=== PATIENT | male | born 1945 | race Caucasian/White ===

== ENCOUNTER → 2018-04-24 08:27 | Outpatient (CLI) | payer MEDICARE, OTHER, SELFPAY ==
--- NOTE | 2018-04-24 08:28 | DI.RAD.S_ITS ---
PROCEDURE: XR SHOULDER RT MIN 2V INDICATIONS: right shoulder pain TECHNIQUE: 3 views of the shoulder were acquired. COMPARISON: None. FINDINGS: Bones: No fractures or dislocations. No suspicious bony lesions. Visualized ribs appear intact. There is moderately severe to severe a.c. joint osteoarthritis and moderate glenohumeral joint osteoarthritis. Tendon transfer omega appear present over the humeral head. Soft tissues: No suspicious soft tissue calcifications. IMPRESSION: No acute trauma seen. Quite severe a.c. joint osteoarthritis is present. Moderate glenohumeral joint osteoarthritic change also is present. Prior tendon transfer omega as noted. Dictated by: Andrade Jacobs M.D. on 04/24/2018 at 11:34 Approved by: Andrade Jacobs M.D. on 04/24/2018 at 11:35
== END ==
PROVIDERS: PCP Family Medicine; Visit Provider Family Medicine
DX: M25.511 Pain in right shoulder (principal); G89.29 Other chronic pain; M19.011 Primary osteoarthritis, right shoulder
CPT/HCPCS: 73030

== ENCOUNTER → 2018-05-08 18:30 | Outpatient (CLI) | payer MEDICARE, OTHER, SELFPAY ==
--- NOTE | 2018-05-08 18:33 | DI.MRI.S_ITS ---
PROCEDURE: MR SHOULDER RT WO CON INDICATIONS: Eval and treat Right shoulder pain TECHNIQUE: Noncontrast oblique coronal T2 fast spin echo with fat saturation, oblique sagittal T1 spin echo and T2 fast spin echo with fat saturation, axial T1 spin echo and T2 fast spin echo with fat saturation through the shoulder. COMPARISON: [facility], CR, XR SHOULDER RT MIN 2V, 04/24/2018, 8:08. FINDINGS: Image quality: Suboptimal due to susceptibility artifact related to postsurgical changes and soft tissue anchors in the right humeral head. Metallic artifact reduction pulse sequences were utilized. Rotator cuff: Supraspinatus tendon is obscured by hardware artifact. The proximal musculotendinous junction and muscle belly. Intact. The infraspinatus tendon demonstrates mild tendinopathy although the distal tendon is also partially obscured. The teres minor tendon appears intact. Subscapularis tendon is obscured distally. The muscular tendinous junction and muscle belly appears intact. No evidence of muscle atrophy. Minimal fatty infiltration of the supraspinatus muscle belly. Bones and bursae: No bone marrow contusions or fractures. Moderate acromioclavicular joint degeneration. The acromion demonstrates conventional anatomy, without an os acromiale. Moderate subacromial-subdeltoid bursal fluid is present. Capsule and soft tissues: No definite intrasubstance fluid signal intensity seen within the labrum although there is a blunted appearance of the posterior segment, with signal abnormality on image 19 series 3 suggestive of likely chronic tear. There is also prominent posterior subluxation of the humeral head relative to the glenoid suggestive of microinstability. There is circumferential quadrant spurring without definite segmental preponderance. The long head of the biceps tendon is obscured by hardware artifact. The rotator interval appears normal, without fibrosis. The coracohumeral ligament is normal in thickness. IMPRESSION: Posterior labral tear, with associated posterior subluxation of the humeral head relative to the glenoid suggestive of microinstability. This finding is probably chronic in age. Please correlate clinically. Rotator cuff is largely obscured by hardware artifact despite metallic artifact reduction pulse sequences. Mild fatty infiltration of the supraspinatus muscle. Moderate subacromial/subdeltoid bursitis. Dictated by: Hipolito Koroma M.D. on 05/11/2018 at 8:25 Approved by: Hipolito Koroma M.D. on 05/11/2018 at 8:37
== END ==
PROVIDERS: PCP Family Medicine; Visit Provider Family Medicine
DX: M25.511 Pain in right shoulder (principal); M75.51 Bursitis of right shoulder; S43.401A Unspecified sprain of right shoulder joint, initial encounter
CPT/HCPCS: 73221

== ENCOUNTER → 2018-07-03 17:03 | Outpatient (CLI) | payer MEDICARE, OTHER, SELFPAY ==
--- NOTE | 2018-07-03 17:06 | DI.MRI.S_ITS ---
PROCEDURE: MR LUMBAR SPINE WO CON INDICATIONS: LOW BACK PAIN AND BILATERAL LEG PAIN TECHNIQUE: Noncontrast sagittal T1 spin echo and T2 fast echo, sagittal STIR, axial T1 and T2 fast spin echo through the lumbar spine. In cases with scoliosis, additional coronal T2 fast spin echo may be performed. COMPARISON: [facility], CR, CHEST 2 VIEW, 07/31/2015, 10:36. [facility], CT, ABDOMEN W&WO CONTRAST, 11/18/2016, 11:14. FINDINGS: Image quality: Excellent. Alignment and Curvature: There is grade 1 anterolisthesis of L2 upon L3, and minimal retrolisthesis of L1 on L2 and L4 on L5. Bone Marrow: Degenerative vertebral endplate signal changes are present, most pronounced at L4 and L5. No acute vertebral body compression fractures. Spinal Cord: Conus medullaris terminates at the T12-L1 level. Visualized cord demonstrates normal signal and size. Paraspinous Soft Tissues: No paravertebral masses. There is a right renal cyst, which is partially visualized. T12-L1: Mild loss of disc height. Severe disc desiccation. There is diffuse posterior disc bulge and disc osteophyte complex. Moderate bilateral facet arthropathy and hypertrophy of ligamentum flavum. The central canal is mildly narrowed. Moderate right and mild left foraminal stenosis. L1-L2: Moderate loss of disc height. Severe disc desiccation. There is diffuse posterior disc bulge and disc osteophyte complex. Moderate bilateral facet arthropathy and hypertrophy of ligamentum flavum. The central canal is rapl-ql-hituijanod narrowed. Severe bilateral foraminal stenosis. L2-L3: Moderate loss of disc height. Severe disc desiccation. There is diffuse posterior disc bulge and disc osteophyte complex. Severe bilateral facet arthropathy with severe facet joint hypertrophy. The central canal is severely narrowed. Severe bilateral foraminal stenosis. L3-L4: The laminectomies. Mild loss of disc height and disc desiccation. There is diffuse posterior disc bulge and small annular fissure posterior centrally. Moderate bilateral facet arthropathy. The central canal is mildly narrowed. Moderate bilateral foraminal stenosis. L4-L5: Laminectomies. Severe loss of disc height and disc desiccation. There is diffuse posterior disc bulge and osteophyte complex. Moderate bilateral facet arthropathy. The central canal is mildly narrowed. Severe bilateral foraminal stenosis. L5-S1: Normal appearance. IMPRESSION: 1. Multilevel degenerative and postsurgical changes in lumbar spine as described. 2. Severe central canal stenosis at L2-L3. 3. Severe foraminal stenosis at L1-L2 bilaterally, L2-L3 bilaterally and L4-L5 bilaterally, and moderate foraminal stenoses at L3-L4 bilaterally. Dictated by: Nazario Oropeza M.D. on 07/06/2018 at 8:43 Transcribed by: LARON on 07/06/2018 at 9:00 Approved by: Nazario Oropeza M.D. on 07/06/2018 at 10:47
== END ==
PROVIDERS: PCP Family Medicine; Visit Provider Orthopaedic Surgery
DX: M51.36 Other intervertebral disc degeneration, lumbar region (principal); M54.5 Low back pain; M48.061 Spinal stenosis, lumbar region without neurogenic claudication
CPT/HCPCS: 72148

== ENCOUNTER 2018-09-20 17:59 | Emergency (ER) | payer MEDICARE, OTHER, SELFPAY ==
[2018-09-20 18:07] VITALS: BP 126/71; PULSE 72; RESP 20; TEMP 36.6; O2SAT 97; BMI 25.3
--- NOTE | 2018-09-20 18:17 | ED.SKABFB ---
HPI - Skin/Abscess/Foreign Bdy General Chief complaint: Skin/Abscess/Foreign Body Stated complaint: wound to left hand Time Seen by Provider: 09/20/18 18:03 Source: patient Mode of arrival: ambulatory Limitations: no limitations History of Present Illness HPI narrative: Prior to arrival the patient was walking his dog at home. The dog was distracted and pulled a direction it was insistent upon going. The patient went down, hitting his left hand on a gardening pot when he fell. He sustained a laceration to the palm of his left hand. He had no head, neck or torso injury. There are no injuries other than the left palm. The wound is clean. His full range of motion in his hand and left digits. He is right-hand dominant. His tetanus is up-to-date. Related Data Previous Rx's Medication Instructions Recorded ranitidine HCl 150 mg PO BID #180 tab 12/02/17 finasteride 5 mg PO QDAY #90 tab 01/22/18 lisinopril 10 mg tablet 10 mg PO QDAY #90 tab 06/16/18 Allergies Allergy/AdvReac Type Severity Reaction Status Date / Time oxycodone Allergy Severe ITCHING, Unverified 04/21/18 09:05 SWEATING, HIVES Review of Systems Review of Systems ROS Unobtainable: All systems reviewed & are unremarkable except as noted in HPI and below Constitutional Reports as per HPI, Denies fatigue and Denies malaise Musculoskeletal Denies muscle weakness, Denies numbness, Denies tingling and Reports other (2 cm flap-type laceration on the thenar eminence of the left hand. There are no foreign bodies or contamination. Range of motion in the left thumb and index are normal. There are no other hand injuries.) Integumentary/Breasts Denies erythema and Reports wounds (Left hand, see HPI) Neurologic Denies numbness and Denies tingling Endocrine Denies fatigue [facility] Social History Smoking Status: Never smoker Exam Initial Vital Signs Initial Vital Signs: Vital Signs Temperature 97.8 F 09/20/18 18:07 Pulse Rate 72 09/20/18 18:07 Respiratory Rate 20 09/20/18 18:07 Blood Pressure 126/71 09/20/18 18:07 Pulse Oximetry 97 09/20/18 18:07 Const General: cooperative and well developed Nutritional Appearance: well nourished Orientation: alert, awake, oriented x3 and not confused Skin General: no rashes or lesions noted, No jaundice and No petechiae Neuro General: alert, oriented x3, gait normal and no focal motor deficits Sensory Exam: no sensory deficits noted Extrem General: other Procedures Laceration Repair Laceration 1: Site: hand Side (If applicable): left Size (cm): 2 Description: flap Depth: simple, single layer Skin layer closed with: other (The laceration was prepped with Betadine and saline. Good wound edge alignment was easily maintained well. The wound was closed with Dermabond. Outcome was good. There were no complications.) Course Vital Signs - 8 hr 09/20/18 18:07 Temperature 97.8 F Pulse Rate 72 Respiratory Rate 20 Blood Pressure 126/71 Pulse Oximetry 97 Discharge Plan Departure Patient Disposition: Home Clinical Impression: Laceration of hand, left Discharge Date/Time: 09/20/18 19:14 Interventions: ED Discharge Assessment Last Done: 09/20/18 19:13 Instructions: DI for Laceration Repair With Dermabond Activity Restrictions/Additional Instructions: Keep the bandage in place for 48 hr. After the initial bandage, leave the injury open when resting around home, the cover the bandage when at work. Return here as needed. Prescriptions: No Action ranitidine HCl 150 MG tablet 150 mg PO BID Qty: 180 RF: 3 finasteride 5 mg tablet 5 mg PO QDAY Qty: 90 RF: 0 lisinopril 10 mg tablet 10 mg PO QDAY Qty: 90 RF: 1
== END 2018-09-20 19:14 | disposition home or self-care (01) ==
PROVIDERS: Emergency Provider Emergency Medicine; PCP Family Medicine
DX: S61.412A Laceration without foreign body of left hand, initial encounter (principal); W22.8XXA Striking against or struck by other objects, initial encounter; Y93.K1 Activity, walking an animal
CPT/HCPCS: 99282

== ENCOUNTER → 2019-01-01 10:34 | Outpatient (CLI) | payer MEDICARE, OTHER, SELFPAY ==
[2019-01-01 12:12] LABS: BUN Creatinine Ratio 26.3 (6-22); Blood Urea Nitrogen 21 mg/dL (9-20); Calcium 8.9 mg/dL (8.4-10.2); Carbon Dioxide 24 mmol/L (22-32); Chloride 105 mmol/L (98-107); Estimated Glomerular Filt Rate > 60.0 mL/min (>60); Glucose 93 mg/dL (80-110); HEMOLYSIS < 15 (0-50); Potassium 4.2 mmol/L (3.4-5.1); Sodium 138 mmol/L (137-145)
[2019-01-01 12:24] LABS: Vitamin D 25 Hydroxy (D3) 59.7 ng/mL (30.0-100.0)
== END ==
PROVIDERS: PCP Student in an Organized Health Care Education/Training Program; Visit Provider Student in an Organized Health Care Education/Training Program
DX: E55.9 Vitamin D deficiency, unspecified (principal); I10 Essential (primary) hypertension
CPT/HCPCS: 36415; 80048; 82306

== ENCOUNTER → 2019-02-02 09:32 | Outpatient (CLI) | payer MEDICARE, OTHER, SELFPAY ==
--- NOTE | 2019-02-02 | DI.MRI.S_ITS ---
PROCEDURE: MR CERVICAL SPINE WO CON INDICATIONS: Other spondylosis with myelopathy, cervical region TECHNIQUE: Noncontrast sagittal T1 spin echo and T2 fast spin echo, sagittal STIR, foraminal oblique sagittal T2 fast spin echo, and axial gradient echo or T2 fast spin echo through the cervical spine. COMPARISON: None. FINDINGS: Image quality: Excellent. Alignment and Curvature: There is normal bony alignment. Bone Marrow: Marrow demonstrates normal overall signal. Spinal Cord: There is loss of AP diameter of the cervical cord has at C2-C3. No cerebellar tonsillar herniation. Paraspinous Soft Tissues: No paravertebral masses. Prevertebral soft tissues are normal in thickness. C2-C3: Preserved disc height. Moderate to severe disc desiccation. There is diffuse posterior disc bulge and a disc osteophyte complex. Moderate left facet arthropathy. The central canal is severely narrowed. Mild bilateral foraminal stenosis and moderate narrowing of the left lateral recess. C3-C4: Fused. There is posterior osteophyte complex. Moderate bilateral facet arthropathy. The central canal is [id number]-tv-voceimru narrowed. Severe right and moderate left foraminal stenosis. C4-C5: Fused. There is large posterior osteophyte complex. Severe bilateral facet arthropathy. The central canal is moderately narrowed. Severe right and moderate left foraminal stenosis. C5-C6: Severe loss of disc height and disc desiccation. There is circumferential disc bulge and disc osteophyte complex. The central canal is rinjyopx-mq-tuvmenml. Severe left and moderate right foraminal stenosis. C6-C7: Severe loss of disc height and disc desiccation. There is circumferential disc bulge and disc osteophyte complex. The central canal is moderately. Moderate bilateral foraminal stenosis. = C7-T1: Preserved disc height and moderate disc desiccation. There is mild posterior disc bulge. The central canal is minimally narrowed. Mild bilateral foraminal stenosis. IMPRESSION: 1. Multilevel degenerative disc disease and facet arthropathy as described. 2. Multilevel central canal stenosis , severe at C2-C3, moderate to severe at C3-C4 and C5-C6, and moderate at C4-C5 and C6-C7. 3. Multilevel foraminal stenosis as described. 4. There is loss of AP diameter of cervical cord at C2-C3 consistent with cord compression. Dictated by: Nazario Oropeza M.D. on 02/02/2019 at 11:10 Approved by: Nazario Oropeza M.D. on 02/02/2019 at 17:13
--- NOTE | 2019-02-02 | DI.US.S_ITS ---
PROCEDURE: US ARTERIAL DUPLEX LE BI INDICATIONS: PERIPHERAL ARTERIAL DISEASE TECHNIQUE: Color and pulse Doppler interrogation was performed of both lower extremity arterial systems, with image documentation. COMPARISON: None. FINDINGS: Right lower extremity: Common femoral artery: 68 cm/sec, with triphasic flow. Deep femoral artery: 42 cm/sec, with triphasic flow. Proximal superficial femoral artery: 78 cm/sec, with triphasic flow. Mid superficial femoral artery: 68 cm/sec, with triphasic flow. Distal superficial femoral artery: 68 cm/sec, with triphasic flow. Popliteal artery: 62 cm/sec, with triphasic flow. Posterior tibial artery: 52 cm/sec, with triphasic flow. Anterior tibial artery/dorsalis pedis: 33-37 cm/sec, with biphasic flow. Alcantar-scale imaging description: No significant stenosis Left lower extremity: Common femoral artery: 64 cm/sec, with triphasic flow. Deep femoral artery: 42 cm/sec, with triphasic flow. Proximal superficial femoral artery: 52 cm/sec, with triphasic flow. Mid superficial femoral artery: 62 cm/sec, with triphasic flow. Distal superficial femoral artery: 51 cm/sec, with triphasic flow. Popliteal artery: 63 cm/sec, with triphasic flow. Posterior tibial artery: 60-78 cm/sec, with biphasic flow. Anterior tibial artery/dorsalis pedis: 34-66 cm/sec, with biphasic flow. Alcantar-scale imaging description: No significant stenosis. IMPRESSION: No significant lower extremity arterial stenosis bilaterally. Dictated by: Nazario Oropeza M.D. on 02/03/2019 at 9:17 Approved by: Nazario Oropeza M.D. on 02/03/2019 at 9:24
== END ==
PROVIDERS: PCP Student in an Organized Health Care Education/Training Program; Visit Provider Dentist Orthodontics and Dentofacial Orthopedics
DX: M47.12 Other spondylosis with myelopathy, cervical region (principal); M50.01 Cervical disc disorder with myelopathy, high cervical region; M48.02 Spinal stenosis, cervical region; I73.9 Peripheral vascular disease, unspecified
CPT/HCPCS: 72141; 93925

== ENCOUNTER → 2019-02-16 14:30 | Outpatient (CLI) | payer MEDICARE, OTHER, SELFPAY ==
--- NOTE | 2019-02-16 | DI.RAD.S_ITS ---
PROCEDURE: XR CHEST 2V INDICATIONS: RENAL CELL CARCINOMA TECHNIQUE: 2 views of the chest were acquired. COMPARISON: None. FINDINGS: Surgical changes and devices: None. Lungs and pleura: Lungs are clear. No pleural effusions or pneumothorax. Mediastinum: Mediastinal contours are normal. Heart size is normal. Bones and chest wall: No suspicious bony abnormalities. Tendon anchors are noted in the right humeral head. Soft tissues appear unremarkable. IMPRESSION: No active cardiopulmonary disease. Dictated by: Nazario Oropeza M.D. on 02/16/2019 at 15:20 Approved by: Nazario Oropeza M.D. on 02/16/2019 at 15:21
[2019-02-16 15:20] LABS: Estimated Glomerular Filt Rate > 60.0 mL/min (>60)
[2019-02-16 17:57] LABS: BUN Creatinine Ratio 28.9 (6-22); Blood Urea Nitrogen 26 mg/dL (9-20)
== END ==
PROVIDERS: PCP Student in an Organized Health Care Education/Training Program; Visit Provider Urology
DX: Z85.528 Personal history of other malignant neoplasm of kidney (principal)
CPT/HCPCS: 36415; 71046; 82565; 84520

== ENCOUNTER → 2019-03-31 13:25 | Outpatient (CLI) | payer MEDICARE, OTHER, SELFPAY ==
--- NOTE | 2019-03-31 13:28 | DI.RAD.S_ITS ---
PROCEDURE: XR THORACIC SPINE 2V INDICATIONS: Back pain TECHNIQUE: 3 views of the thoracic spine were acquired. COMPARISON: None. FINDINGS: Bones: No fractures or dislocations. No suspicious bony lesions. 12 pairs of ribs are noted, and appear intact where visualized. Soft tissues: No paravertebral stripe thickening. IMPRESSION: Degenerative disc disease along the thoracic spine is moderate in overall severity showing no evidence of recent or long-standing trauma. No subluxation is present. No area of definite spinal or foraminal stenosis is found. Dictated by: Andrade Jacobs M.D. on 03/31/2019 at 14:31 Approved by: Andrade Jacobs M.D. on 03/31/2019 at 14:32
== END ==
PROVIDERS: PCP Student in an Organized Health Care Education/Training Program; Visit Provider Student in an Organized Health Care Education/Training Program
DX: M54.9 Dorsalgia, unspecified (principal); M51.34 Other intervertebral disc degeneration, thoracic region
CPT/HCPCS: 72070

== ENCOUNTER → 2019-07-01 10:53 | Outpatient (CLI) | payer MEDICARE, OTHER, SELFPAY ==
--- NOTE | 2019-07-01 | DI.RAD.S_ITS ---
PROCEDURE: XR CHEST 2V INDICATIONS: COUGH TECHNIQUE: 2 views of the chest were acquired. COMPARISON: [facility], CR, XR CHEST 2V, 02/16/2019, 14:37. FINDINGS: Surgical changes and devices: Soft tissue anchors projecting in the right humeral head. Lungs and pleura: Lungs are clear. No pleural effusions or pneumothorax. Mediastinum: Mediastinal contours are normal. Heart size is normal. Bones and chest wall: No suspicious bony abnormalities. Bilateral shoulder degeneration. Soft tissues appear unremarkable. IMPRESSION: No acute disease Dictated by: Hipolito Koroma M.D. on 07/01/2019 at 12:47 Approved by: Hipolito Koroma M.D. on 07/01/2019 at 12:49
== END ==
LOC: LAB 10:59 → RAD 11:02
PROVIDERS: PCP Student in an Organized Health Care Education/Training Program; Visit Provider Physician Assistant
DX: R05 Cough (principal)
CPT/HCPCS: 71046

== ENCOUNTER → 2019-08-22 13:42 | Outpatient (CLI) | payer MEDICARE, OTHER, SELFPAY | PROVIDERS: PCP Student in an Organized Health Care Education/Training Program; Visit Provider Physician Assistant | DX: J02.9 Acute pharyngitis, unspecified (principal) | CPT/HCPCS: 87070 ==

== ENCOUNTER → 2020-02-01 17:16 | Outpatient (CLI) | payer MEDICARE, OTHER, SELFPAY ==
--- NOTE | 2020-02-01 17:17 | DI.MRI.S_ITS ---
PROCEDURE: MR LUMBAR SPINE WO CON INDICATIONS: Lumbar canal stenosis TECHNIQUE: Noncontrast sagittal T1 spin echo and T2 fast echo, sagittal STIR, axial T1 and T2 fast spin echo through the lumbar spine. In cases with scoliosis, additional coronal T2 fast spin echo may be performed. COMPARISON: [facility], CT, ABDOMEN W&WO CONTRAST, 11/18/2016, 11:14. [facility], MR, MR LUMBAR SPINE WO CON, 07/03/2018, 17:19. [facility], CR, XR LUMBAR SPINE WITH OLBIQUES PLUS FLEXION EXTENSION, 07/07/2018, 11:21. FINDINGS: Image quality: Excellent. Alignment and Curvature: There are 5 lumbar-type vertebral bodies, with a transitional element at S1, as noted on the montage panel. This is a different numbering system than was used on the prior examination. There is mild, grade 1 retrolisthesis of L1 on L2, L2 on L3, and L5 on S1. Mild grade 1 anterolisthesis of L3 on L4. Bone Marrow: Marrow is of normal overall signal. No acute vertebral body compression fractures. L4-L5 laminectomy. Spinal Cord: Conus medullaris terminates at the L1-L2 disc space level. Visualized cord demonstrates normal signal and size. There is a 4 mm diameter low T2 intensity intradural focus within the central canal at the L1-L2 disc space level, which is unchanged. Paraspinous Soft Tissues: No paravertebral masses. Bilateral renal cysts are present, including cysts with low T2 intensity components in the bilateral kidneys, as before. L1-L2: Mild disc height loss. Moderate disc desiccation. Mild diffuse disc bulge. Mild facet and ligamentum flavum hypertrophy. Moderate canal stenosis. Mild bilateral foraminal stenosis. No change. L2-L3: Moderate disc height loss and desiccation. Moderate diffuse disc bulge. Mild facet and ligamentum hypertrophy. Mild epidural lipomatosis. Moderate to severe canal stenosis. Moderate subarticular foraminal stenosis bilaterally. No change. L3-L4: Moderate disc height loss and desiccation. Moderate diffuse disc bulge/osteophyte with superimposed right far lateral protrusion. Moderate facet and ligamentum flavum hypertrophy bilaterally. Increased, severe canal stenosis. No change in moderate subarticular foraminal stenosis bilaterally. L4-L5: Moderate disc height loss and desiccation. Moderate diffuse disc bulge. Moderate facet hypertrophy bilaterally. Mild canal stenosis. Moderate subarticular foraminal stenosis bilaterally. No change. L5-S1: Severe disc height loss and desiccation. Moderate diffuse disc bulge/osteophyte. Moderate bilateral facet hypertrophy. Moderate canal stenosis. Severe left and moderate right foraminal stenosis. Left L5 nerve root compression. Left greater than right lateral recess stenosis bilaterally. Compression of the left S1 nerve root within the lateral recess. No change. IMPRESSION: 1. Multilevel degenerative disc and facet disease, as well as ligamentum flavum hypertrophy and epidural lipomatosis. 2. Postsurgical sequelae. 3. Multilevel canal stenoses, worse at L3-L4, where there is increased, severe canal stenosis. Moderate to severe canal stenosis at L2-L3 is unchanged. 4. Multilevel foraminal stenoses, worst at L5-S1 on the left where there is associated L5 nerve root compression. 5. No change in left lateral recess stenosis at L5-S1 where there is associated left S1 nerve root compression. 6. Recommend correlation with clinical symptoms to ascertain relevance of these findings. 7. No change in intradural low T2 intensity focus within the central spinal canal, possibly indicating a small benign tumor such as a schwannoma. This could be further assessed with postcontrast imaging of the lumbar spine, clinically indicated. 8. Atypical numbering system as described above with transitional anatomy at the lumbosacral junction. This is a different numbering system and was employed on the prior report. Dictated by: Bobbi Gamboa M.D. on 02/02/2020 at 8:27 Approved by: Eva Wiseman M.D. on 02/02/2020 at 8:40
== END ==
PROVIDERS: PCP Student in an Organized Health Care Education/Training Program; Referring Provider Student in an Organized Health Care Education/Training Program; Visit Provider Student in an Organized Health Care Education/Training Program
DX: M48.061 Spinal stenosis, lumbar region without neurogenic claudication (principal); R20.0 Anesthesia of skin; M51.36 Other intervertebral disc degeneration, lumbar region; M51.37 Other intervertebral disc degeneration, lumbosacral region; M48.07 Spinal stenosis, lumbosacral region; N28.1 Cyst of kidney, acquired; E88.2 Lipomatosis, not elsewhere classified
CPT/HCPCS: 72148

== ENCOUNTER → 2020-03-21 18:30 | Outpatient (CLI) | payer MEDICARE, OTHER, SELFPAY ==
--- NOTE | 2020-03-21 18:36 | DI.MRI.S_ITS ---
PROCEDURE: MR THORACIC SPINE WO CON INDICATIONS: OTHER SYMPTOMS AND SIGNS INVOLVING THE MUSCULOSKEL TECHNIQUE: Noncontrast sagittal T1 spine echo and T2 fast spin echo, sagittal STIR, axial T1 and T2 fast spin echo through the thoracic spine. COMPARISON: None. FINDINGS: Image quality: Excellent. Alignment and Curvature: There is normal bony alignment. Bone Marrow: Mild reactive endplate changes noted adjacent to the the T12-L1 disc. Benign, intraosseous hemangiomas noted in T8-T9 vertebral bodies. No acute vertebral body compression fractures. Spinal Cord: Visualized spinal cord is normal in size and signal. There is a 4 mm intradural, extramedullary nodular mass associated with the nerve roots of the cauda equina the level of the T12-L1 disc. Paraspinous Soft Tissues: No paravertebral masses. Miscellaneous: Loss of disc signal and height noted throughout the thoracic spine. Moderate bilateral T12-L1 facet hypertrophy. Mild bilateral T11-T12 facet hypertrophy. Moderate T12-L1 central canal narrowing. Mild T11-T12 central canal narrowing. Moderate bilateral T12-L1 neural foraminal narrowing. No neural compression. IMPRESSION: 1. 4 mm intradural, extramedullary nodular mass associated with the nerve roots of the cauda equina at the level of the T12-L1 disc. Likely differential considerations include meningioma, schwannoma and neurofibroma. Recommend MRI of the lumbar spine with contrast for further characterization. 2. Multilevel degenerate disc disease. 3. Multilevel facet arthropathy. 4. Moderate T12-L1 central canal narrowing. Mild T11-T12 central canal narrowing. 5. Moderate bilateral T12-L1 neural foraminal narrowing. 6. No neural compression. Dictated by: Bryanna Bautista MD, PhD on 03/22/2020 at 14:19 Approved by: Bryanna Bautista MD, PhD on 03/22/2020 at 14:29
== END ==
PROVIDERS: PCP Student in an Organized Health Care Education/Training Program; Referring Provider Physician Assistant; Visit Provider Physician Assistant
DX: R29.898 Other symptoms and signs involving the musculoskeletal system (principal); M51.34 Other intervertebral disc degeneration, thoracic region; M47.814 Spondylosis without myelopathy or radiculopathy, thoracic region; M48.04 Spinal stenosis, thoracic region; M48.05 Spinal stenosis, thoracolumbar region; G95.89 Other specified diseases of spinal cord
CPT/HCPCS: 72146

== ENCOUNTER → 2020-05-18 14:39 | Outpatient (CLI) | payer MEDICARE, OTHER, SELFPAY ==
--- NOTE | 2020-05-18 | DI.US.S_ITS ---
PROCEDURE: US RENAL COMPLETE INDICATIONS: Personal history of other malignant neoplasm of kidney TECHNIQUE: Real-time scanning was performed of the kidneys and bladder, with image documentation. COMPARISON: [facility], CT, ABDOMEN W&WO CONTRAST, 11/18/2016, 11:14. [facility], CT, ABDOMEN W&WO CONTRAST, 10/09/2015, 7:50. [facility], CT, ABDOMEN/PELVIS WITH CONTRAST, 03/23/2015, 8:06. FINDINGS: Kidneys: Kidneys are normal in size. Right kidney measures 12.9 cm long; left kidney measures 9.8 cm long. Right renal cortical thickness is 2 cm; left renal cortical thickness is 2 cm. Renal cortical echotexture is normal. No hydronephrosis or nephrolithiasis. No suspicious solid mass lesions. Along the inferior aspect of the left renal cortex, there is an exophytic hypoechoic nodular mass that measures 2.2 x 1.7 x 1.6 cm. There is a 4.2 x 3.9 x 4 cm cyst seen involving the mid aspect right kidney, with mild internal debris. Bladder: Pre-void bladder volume is 250 mL. Post-void residual is 180 mL. Pre-void images demonstrate no intraluminal masses or stones. On pre-void images, both ureteral jets are noted with color Doppler interrogation. (Of note, ureteral jets may not be detectable in up to 25% of cases due to insufficient differences in specific gravity between ureteral and bladder urine). Miscellaneous: No free pelvic fluid. IMPRESSION: At the inferior pole of the left kidney, there is an exophytic nodular mass, which may simply be related to postoperative scarring. However, in this patient with this given history, please consider a dedicated renal mass protocol CT for further evaluation. Moderate postvoid residual, 180 cc. Dictated by: Wilfredo Mondragon M.D. on 05/18/2020 at 15:51 Approved by: Wilfredo Mondragon M.D. on 05/18/2020 at 15:54
== END ==
PROVIDERS: PCP Student in an Organized Health Care Education/Training Program; Referring Provider Urology; Visit Provider Urology
DX: N28.9 Disorder of kidney and ureter, unspecified (principal); N28.1 Cyst of kidney, acquired; Z85.528 Personal history of other malignant neoplasm of kidney
CPT/HCPCS: 76770

== ENCOUNTER → 2020-08-29 09:50 | Outpatient (CLI) | payer MEDICARE, OTHER, SELFPAY ==
--- NOTE | 2020-08-29 09:53 | DI.RAD.S_ITS ---
PROCEDURE: XR FOOT RT MIN 3V INDICATIONS: pain of right toes TECHNIQUE: 3 views of the foot were acquired. COMPARISON: None. FINDINGS: Bones: No fractures or dislocations. No suspicious bony lesions. There is metatarsus adductus and hallux valgus. Moderate 1st metatarsophalangeal and multiple interphalangeal joint degeneration. Plantar and posterior calcaneal spurring. Bipartite medial sesamoid. Soft tissues: No tibiotalar joint effusion. Achilles tendon calcifications consistent with calcific tendinitis. IMPRESSION: 1. Metatarsus adductus and hallux valgus. 2. Moderate degenerative joint disease. 3. Calcaneal spurring. 4. Calcific tendinitis of the Achilles tendon. Dictated by: Nazario Oropeza M.D. on 08/29/2020 at 10:22 Approved by: Nazario Oropeza M.D. on 08/29/2020 at 10:27
[2020-08-29 11:10] LABS: Uric Acid 4.3 mg/dL (3.5-8.5)
== END ==
PROVIDERS: PCP Student in an Organized Health Care Education/Training Program; Referring Provider Registered Nurse; Visit Provider Registered Nurse
DX: M79.674 Pain in right toe(s) (principal); M20.11 Hallux valgus (acquired), right foot; M19.071 Primary osteoarthritis, right ankle and foot; M77.31 Calcaneal spur, right foot; M76.61 Achilles tendinitis, right leg
CPT/HCPCS: 36415; 73630; 84550

== ENCOUNTER → 2020-09-20 10:48 | Outpatient (CLI) | payer MEDICARE, OTHER, SELFPAY ==
[2020-09-20] MEDS: COVID-19 VACC #1, MRNA(MOD) 100 MCG/0.5 ML VIAL IM (10:52)
== END ==
PROVIDERS: PCP Student in an Organized Health Care Education/Training Program; Visit Provider Internal Medicine
DX: Z23 Encounter for immunization (principal)
CPT/HCPCS: 0011A; 91301

== ENCOUNTER → 2020-10-18 08:06 | Outpatient (CLI) | payer MEDICARE, OTHER, SELFPAY ==
[2020-10-18] MEDS: COVID-19 VACC #2, MRNA(MOD) 100 MCG/0.5 ML VIAL IM (08:14)
== END ==
PROVIDERS: PCP Student in an Organized Health Care Education/Training Program; Visit Provider Internal Medicine
DX: Z23 Encounter for immunization (principal)
CPT/HCPCS: 0012A; 91301

== ENCOUNTER 2021-02-27 03:47 | Emergency (ER) | payer MEDICARE, OTHER, SELFPAY ==
[2021-02-27 04:13] VITALS: BP 147/78; PULSE 71; RESP 16; TEMP 37.2; O2SAT 97; BMI 23.1
--- NOTE | 2021-02-27 04:13 | DI.CT.S_ITS ---
PROCEDURE: CT ABDOMEN PELVIS W CON INDICATIONS: Severe abdominal pain since recent lumbar surgery, nausea, vomiting TECHNIQUE: After the administration of intravenous contrast, axial sections acquired from the lung bases to the pubic symphysis. Coronal and sagittal reformats were performed. For radiation dose reduction, the following was used: automated exposure control, adjustment of mA and/or kV according to patient size. COMPARISON: [facility], CT, ABDOMEN/PELVIS WITH CONTRAST, 03/23/2015, 8:06. FINDINGS: Image quality: Excellent. Lung bases: Unremarkable. Heart: Partially imaged heavy coronary calcification. Normal size heart. ABDOMEN: Liver: Unremarkable. Gallbladder: Unremarkable. Biliary ducts: Unremarkable. Pancreas: Unremarkable. Spleen: Unremarkable. Adrenal Glands: Unremarkable. Kidneys and Ureters: Partially exophytic cyst in the midportion of the right kidney. There are resection changes along the posterior midpole cortex of the left kidney extending towards the retro peritoneal surface. Enhancing mass seen in 2015 has been removed. Stomach and Bowel: Slightly increased quantity of solid stool is present throughout the colon. There is mild wall thickening within the sigmoid colon with occasional small diverticula, but no pericolonic inflammation. Peritoneum: No abnormal intraperitoneal fluid. No free air. Ventral Wall: No hernias. Abdominal Nodes: No retroperitoneal or mesenteric adenopathy by size criteria. Vessels: Aorta and inferior vena cava are normal in size. PELVIS: Pelvic Organs: Unremarkable. Bladder: There is a Talley catheter in the urinary bladder. The urinary bladder wall is diffusely thickened and the mucosa is mildly hyperenhancing. The prostate gland is moderately enlarged. Pelvic Nodes: No enlarged lymph nodes. Miscellaneous: No hernias are seen. Bones: Right hip arthroplasty changes are present. There are severe degenerative disc changes in the lumbar spine. There has been laminectomy change from L2 through L5. In the midline subcutaneous tissues, there is a minimally peripherally enhancing fluid collection measuring about 4.6 x 1.3 x 10.4 cm without significant mass effect. IMPRESSION: 1. Extensive urinary bladder wall thickening and mucosal enhancement suspicious for cystitis. There is an indwelling Talley catheter. Correlate with UA. 2. Sigmoid diverticulosis with mild wall thickening but no pericolonic inflammation. This may indicate chronic diverticulitis. 3. Resection of prior left-sided enhancing renal mass. 4. Subcutaneous fluid collection along the lumbar spine overlying the postoperative changes of laminectomy. This may represent a seroma, organizing hematoma, or abscess and clinical correlation is recommended. 5. Discrepancy between final and preliminary read was discussed with Dr. Garcia at [facility] emergency room at 09:56 hours on 02/27/21. Dictated by: Kalie Rainey M.D. on 02/27/2021 at 8:59 Approved by: Kalie Rainey M.D. on 02/27/2021 at 10:00
--- NOTE | 2021-02-27 04:20 | ED.ABDPAIN ---
HPI - Abdominal Pain <Ryan Reyes DO - Last Filed: 02/27/21 08:11> General Chief Complaint: Nausea/Vomiting/Diarrhea Stated Complaint: Spinal stenosis surgery 6.28-vomiting, blood in ur Time Seen by Provider: 02/27/21 03:53 History of Present Illness HPI narrative: 75-year-old male nonsmoker with history of hypertension and spinal stenosis presents with his in the chief complaint of generalized abdominal pain for the past few days. He states it is persistent and denies much in the way of provocation or palliation. He denies any radiation. He states that he has been nauseated and has had a few episodes of vomiting which also did not affect his level of discomfort. He has no change in his bowel habits. He had surgery for lumbar spinal stenosis on February 19 and was just discharged from the hospital on Friday. He has had a Talley catheter in place since his discharge and started developing blood in the Talley bag this evening. He denies any fever chills. He has not dizzy but is feeling a bit fatigued and under the weather. Related Data Previous Rx's Medication Instructions Recorded losartan 25 mg tablet See Rx Instructions .ROUTE 05/11/20 .COMPLEX #90 tab montelukast 10 mg tablet 10 mg PO QPM #90 tab 09/05/20 cefuroxime axetil 500 mg tablet 500 mg PO BID #14 tab 02/27/21 Allergies Allergy/AdvReac Type Severity Reaction Status Date / Time oxycodone Allergy Severe ITCHING, Verified 08/29/20 09:20 SWEATING, HIVES Review of Systems <DO Priti Crowder Last Filed: 02/27/21 08:11> Review of Systems Narrative: GENERAL: Denies chills, fatigue, malaise, fever, sweats. HEENT: Denies sinus pain, ear pain, sore throat, difficulty swallowing, dizziness. RESPIRATORY: See HPI CARDIOVASCULAR: Denies chest pain, palpitations, orthopnea, edema, GASTROINTESTINAL: See HPI. : See HPI MUSCULOSKELETAL: denies weakness, joint pain, or bony pain SKIN: Denies rash, skin lesions, or other NEUROLOGIC: Denies weakness, headache, numbness, change in speech, confusion, seizures, incoordination. PSYCHIATRIC: No concerning psychosocial issues. 12 point review of systems is negative except for those stated above Patient History <Ryan Reyes DO - Last Filed: 02/27/21 08:11> Medical History (Updated 02/27/21 @ 08:10 by Ryan Reyes DO) Abdominal bloating Acne Benign prostatic hyperplasia with lower urinary tract symptoms (06/03/16) BPH (benign prostatic hyperplasia) Cancer of kidney (~2014) Chickenpox Essential hypertension (10/07/17) GERD (gastroesophageal reflux disease) GERD (gastroesophageal reflux disease) Hearing loss Hearing loss History of colonic polyps (06/03/16) History of renal cell cancer (06/03/16) Hypertension Lower extremity numbness Lumbar spinal stenosis Measles Osteoarthritis of knees, bilateral (~2014) Primary osteoarthritis of hip (06/03/16) Right rotator cuff tear Right shoulder pain Urinary incontinence Surgical History History of kidney surgery (2014) History of right hip replacement (2005) Hx of colonoscopy with polypectomy Hx of total knee arthroplasty (~2014) S/P rotator cuff repair Family History Brother Cancer Father Cancer Mother No problems noted. Social History Smoking Status: Never smoker Smoking Status: Never smoker Substance Use Type: does not use Exam <Ryan Reyes DO - Last Filed: 02/27/21 08:11> Narrative Exam Narrative: GENERAL: [75] year old patient appears stated age. Well-developed patient, in mild distress. Obviously uncomfortable HEAD: Atraumatic. Normocephalic. EYES: Pupils equal round and reactive. Extraocular motions intact. No scleral icterus. No injection or drainage. ENT: Nose without bleeding, purulent drainage. Throat without erythema, tonsillar hypertrophy or exudate. Airway patent. NECK: Trachea midline. Non tender CARDIOVASCULAR: Regular rate and rhythm without murmurs, gallops, or rubs. RESPIRATORY: Clear to auscultation. Breath sounds equal bilaterally. No wheezes, rales, or rhonchi. GASTROINTESTINAL: Abdomen soft, generalized tenderness, bowel sounds present in all 4 quadrants, nondistended. Talley catheter in place, draining blood-tinged urine EXTREMITIES: No edema or joint tenderness. BACK: Nontender, no swelling, redness, induration or fluctuance. Incision is Clean, dry and intact, no dehiscence or drainage. NEURO: AOx3. SKIN: No rash or erythema of visible areas Initial Vital Signs Initial Vital Signs: Vital Signs Temperature 98.9 F 02/27/21 04:13 Pulse Rate 71 02/27/21 04:13 Respiratory Rate 16 02/27/21 04:13 Blood Pressure 147/78 H 02/27/21 04:13 Pulse Oximetry 97 02/27/21 04:13 <Maria E Garcia, DO - Last Filed: 02/28/21 08:57> Initial Vital Signs Initial Vital Signs: Vital Signs Temperature 98.9 F 02/27/21 04:13 Pulse Rate 71 02/27/21 04:13 Respiratory Rate 16 02/27/21 04:13 Blood Pressure 147/78 H 02/27/21 04:13 Pulse Oximetry 97 02/27/21 04:13 Course <Ryan Reyes DO - Last Filed: 02/27/21 08:11> Course Course Narrative: Talley catheter was successfully placed and drained large amount of urine, however patient has no change in his symptoms and still has significant pain in his left lower quadrant. X-ray has been interpreted as nonobstructive but shows a large amount of stool and gas. IV will be placed, with fluids and labs drawn. Will start with Dulcolax suppository followed by an ME for attempt at moving bowels Orders Ordered: Discontinued Medications Bisacodyl (Bisacodyl 10 Mg Supp) 10 mg ID NOW ONE Stop: 02/27/21 06:13 Hydromorphone HCl (Hydromorphone 0.5 Mg Inj) 0.5 mg IV NOW ONE Stop: 02/27/21 04:14 Last Admin: 02/27/21 04:38 Dose: 0.5 mg Documented by: LINDSEY Hydromorphone HCl (Hydromorphone 0.5 Mg Inj) 0.5 mg IV NOW ONE Stop: 02/27/21 08:18 Last Admin: 02/27/21 08:23 Dose: 0.5 mg Documented by: LINDSEY Sodium Chloride (Normal Saline 0.9%) 1,000 mls @ 125 mls/hr IV CONT LUCIO Last Infusion: 02/27/21 06:34 Dose: 0 mls/hr Documented by: Admin: 02/27/21 04:38 Dose: 125 mls/hr Documented by: LINDSEY Sodium Chloride (Normal Saline 0.9%) 1,000 mls @ 1,000 mls/hr IV BOLUS ONE Stop: 02/27/21 07:11 Ondansetron HCl (Ondansetron 4 Mg/2 Ml Inj) 4 mg IV NOW ONE Stop: 02/27/21 04:31 Last Admin: 02/27/21 04:38 Dose: 4 mg Documented by: LINDSEY Ondansetron HCl (Ondansetron 4 Mg/2 Ml Inj) 4 mg IV NOW ONE Stop: 02/27/21 08:19 Last Admin: 02/27/21 08:23 Dose: 4 mg Documented by: LINDSEY Pantoprazole Sodium (Pantoprazole 40 Mg Vial) 40 mg IV NOW ONE Stop: 02/27/21 04:14 Last Admin: 02/27/21 04:38 Dose: 40 mg Documented by: LINDSEY Consultations Consultation #1: Discussed with on-call Neurosurgery at [facility]. They have reviewed the images, recent surgical notes, history and physical for today. We sure the opinion that though the CT mentions abscess this is much more likely to be a normal consequence of the surgery especially given lack of redness, warmth and tenderness of underlying the incision. Surgery recommends leaving Talley catheter in place, encouraging patient to remain hydrated, return to normal diet, be active within limits of discharge note and give return precautions Vital Signs Vital signs: Vital Signs - 8 hr 02/27/21 04:13 02/27/21 08:28 Temperature 98.9 F Pulse Rate 71 64 Respiratory Rate 16 16 Blood Pressure 147/78 H 119/75 Pulse Oximetry 97 97 <Maria E Garcia, DO - Last Filed: 02/28/21 08:57> Orders Ordered: Discontinued Medications Bisacodyl (Bisacodyl 10 Mg Supp) 10 mg ID NOW ONE Stop: 02/27/21 06:13 Hydromorphone HCl (Hydromorphone 0.5 Mg Inj) 0.5 mg IV NOW ONE Stop: 02/27/21 04:14 Last Admin: 02/27/21 04:38 Dose: 0.5 mg Documented by: LINDSEY Hydromorphone HCl (Hydromorphone 0.5 Mg Inj) 0.5 mg IV NOW ONE Stop: 02/27/21 08:18 Last Admin: 02/27/21 08:23 Dose: 0.5 mg Documented by: LINDSEY Sodium Chloride (Normal Saline 0.9%) 1,000 mls @ 125 mls/hr IV CONT LUCIO Last Infusion: 02/27/21 06:34 Dose: 0 mls/hr Documented by: Admin: 02/27/21 04:38 Dose: 125 mls/hr Documented by: LINDSEY Sodium Chloride (Normal Saline 0.9%) 1,000 mls @ 1,000 mls/hr IV BOLUS ONE Stop: 02/27/21 07:11 Ondansetron HCl (Ondansetron 4 Mg/2 Ml Inj) 4 mg IV NOW ONE Stop: 02/27/21 04:31 Last Admin: 02/27/21 04:38 Dose: 4 mg Documented by: LINDSEY Ondansetron HCl (Ondansetron 4 Mg/2 Ml Inj) 4 mg IV NOW ONE Stop: 02/27/21 08:19 Last Admin: 02/27/21 08:23 Dose: 4 mg Documented by: LINDSEY Pantoprazole Sodium (Pantoprazole 40 Mg Vial) 40 mg IV NOW ONE Stop: 02/27/21 04:14 Last Admin: 02/27/21 04:38 Dose: 40 mg Documented by: LINDSEY Vital Signs Vital signs: Vital Signs - 8 hr 02/27/21 04:13 02/27/21 08:28 Temperature 98.9 F Pulse Rate 71 64 Respiratory Rate 16 16 Blood Pressure 147/78 H 119/75 Pulse Oximetry 97 97 MDM - Abdominal Pain <Ryan Reyes DO - Last Filed: 02/27/21 08:11> Lab Data Result diagrams: 02/27/21 04:25 02/27/21 04:25 Labs: Lab Results 02/27/21 02/27/21 02/27/21 Range/Units 04:25 04:25 04:25 WBC 10.8 (4.5-11.0) X10^3/uL RBC 4.57 (4.5-5.9) X10^6/uL Hgb 13.9 (13.5-17.5) g/dL Hct 40.5 L (41-53) % MCV 88.6 (80-100) fL MCH 30.4 (26-34) PG MCHC 34.3 (30-36) % RDW 13.3 (11.6-14.8) % Plt Count 197 (150-400) X10^3/uL Neut % (Auto) 79.4 H (50-75) % Lymph % (Auto) 10.4 L (25-40) % [place] % (Auto) 7.7 (3-14) % Eos % (Auto) 1.8 L (2-4) % Baso % (Auto) 0.7 (0-2) % Neut # (Auto) 8600 H (2112-1645) /uL Lymph # (Auto) 1100 (1603-9180) /uL Roosevelt # (Auto) 800 (0-900) /uL Eos # (Auto) 200 (0-450) /uL Baso # (Auto) 100 (0-100) /uL Sodium 131 L (137-145) mmol/L Potassium 4.4 (3.4-5.1) mmol/L Chloride 98 (98-107) mmol/L Carbon Dioxide 27 (22-32) mmol/L BUN 19 (9-20) mg/dL Creatinine 0.77 (0.66-1.25) mg/dL Estimated GFR > 60.0 (>60) mL/min BUN/Creatinine Ratio 24.7 H (6-22) Glucose 136 H (80-110) mg/dL Lactate (0.7-2.1) mmol/L Calcium 9.1 (8.4-10.2) mg/dL Total Bilirubin 0.5 (0.2-1.3) mg/dL AST 34 (17-59) IU/L ALT 54 H (<50) IU/L Alkaline Phosphatase 45 (38-126) U/L Total Protein 6.0 L (6.3-8.2) g/dL Albumin 3.5 (3.5-5.0) g/dL Globulin 2.5 (1.7-4.1) g/dL Albumin/Globulin Ratio 1.4 (1.0-2.8) Lipase 60 (23-300) U/L Urine Color Brown Urine Appearance Turbid Urine pH 6 (4.5-8.0) Ur Specific [place] 1.030 (1.000-1.035) Urine Protein 3+ H (Negative) Urine Glucose (UA) Negative (Negative) g/dL Urine Ketones Not Reportable Urine Occult Blood 3+ H (Negative) Urine Nitrate Not Reportable Urine Bilirubin Negative (NEGATIVE) Urine Urobilinogen Normal (0.2) E.U./dL Ur Leukocyte Esterase 1+ H (NEGATIVE) Urine RBC >100/hpf H (0-5/HPF) Urine WBC 5-10/hpf H (0-5/HPF) Urine Bacteria Many (>30) H (None) Ur Culture Indicated? Specimen cultured 02/27/21 Range/Units 04:25 WBC (4.5-11.0) X10^3/uL RBC (4.5-5.9) X10^6/uL Hgb (13.5-17.5) g/dL Hct (41-53) % MCV (80-100) fL MCH (26-34) PG MCHC (30-36) % RDW (11.6-14.8) % Plt Count (150-400) X10^3/uL Neut % (Auto) (50-75) % Lymph % (Auto) (25-40) % [place] % (Auto) (3-14) % Eos % (Auto) (2-4) % Baso % (Auto) (0-2) % Neut # (Auto) (3175-6564) /uL Lymph # (Auto) (9643-8632) /uL Roosevelt # (Auto) (0-900) /uL Eos # (Auto) (0-450) /uL Baso # (Auto) (0-100) /uL Sodium (137-145) mmol/L Potassium (3.4-5.1) mmol/L Chloride (98-107) mmol/L Carbon Dioxide (22-32) mmol/L BUN (9-20) mg/dL Creatinine (0.66-1.25) mg/dL Estimated GFR (>60) mL/min BUN/Creatinine Ratio (6-22) Glucose (80-110) mg/dL Lactate 0.8 (0.7-2.1) mmol/L Calcium (8.4-10.2) mg/dL Total Bilirubin (0.2-1.3) mg/dL AST (17-59) IU/L ALT (<50) IU/L Alkaline Phosphatase (38-126) U/L Total Protein (6.3-8.2) g/dL Albumin (3.5-5.0) g/dL Globulin (1.7-4.1) g/dL Albumin/Globulin Ratio (1.0-2.8) Lipase (23-300) U/L Urine Color Urine Appearance Urine pH (4.5-8.0) Ur Specific [place] (1.000-1.035) Urine Protein (Negative) Urine Glucose (UA) (Negative) g/dL Urine Ketones Urine Occult Blood (Negative) Urine Nitrate Urine Bilirubin (NEGATIVE) Urine Urobilinogen (0.2) E.U./dL Ur Leukocyte Esterase (NEGATIVE) Urine RBC (0-5/HPF) Urine WBC (0-5/HPF) Urine Bacteria (None) Ur Culture Indicated? Imaging Data CT scan - abdomen/pelvis: Radiologist's Impression: Rim enhancing fluid collection within the subcutaneous tissues overlying the lumbar spine concerning for abscess. This is 4.6 by 1.3 by 10.4cm MDM Narrative Medical decision making narrative: Multiple etiologies for patient's symptoms considered including: Postsurgical infection versus bowel obstruction versus multifactorial constipation versus urine infection versus other[] Patient's symptoms improved over duration of stay with above-stated therapies. Findings and discharge diagnosis discussed with patient/family followed by verbalization of understanding Return precautions discussed with patient/family whom verbalize understanding. <Maria E Garcia, DO - Last Filed: 02/28/21 08:57> Lab Data Labs: Lab Results 02/27/21 02/27/21 02/27/21 Range/Units 04:25 04:25 04:25 WBC 10.8 (4.5-11.0) X10^3/uL RBC 4.57 (4.5-5.9) X10^6/uL Hgb 13.9 (13.5-17.5) g/dL Hct 40.5 L (41-53) % MCV 88.6 (80-100) fL MCH 30.4 (26-34) PG MCHC 34.3 (30-36) % RDW 13.3 (11.6-14.8) % Plt Count 197 (150-400) X10^3/uL Neut % (Auto) 79.4 H (50-75) % Lymph % (Auto) 10.4 L (25-40) % [place] % (Auto) 7.7 (3-14) % Eos % (Auto) 1.8 L (2-4) % Baso % (Auto) 0.7 (0-2) % Neut # (Auto) 8600 H (3103-4210) /uL Lymph # (Auto) 1100 (2588-0382) /uL [place] # (Auto) 800 (0-900) /uL Eos # (Auto) 200 (0-450) /uL Baso # (Auto) 100 (0-100) /uL Sodium 131 L (137-145) mmol/L Potassium 4.4 (3.4-5.1) mmol/L Chloride 98 (98-107) mmol/L Carbon Dioxide 27 (22-32) mmol/L BUN 19 (9-20) mg/dL Creatinine 0.77 (0.66-1.25) mg/dL Estimated GFR > 60.0 (>60) mL/min BUN/Creatinine Ratio 24.7 H (6-22) Glucose 136 H (80-110) mg/dL Lactate (0.7-2.1) mmol/L Calcium 9.1 (8.4-10.2) mg/dL Total Bilirubin 0.5 (0.2-1.3) mg/dL AST 34 (17-59) IU/L ALT 54 H (<50) IU/L Alkaline Phosphatase 45 (38-126) U/L Total Protein 6.0 L (6.3-8.2) g/dL Albumin 3.5 (3.5-5.0) g/dL Globulin 2.5 (1.7-4.1) g/dL Albumin/Globulin Ratio 1.4 (1.0-2.8) Lipase 60 (23-300) U/L Urine Color Brown Urine Appearance Turbid Urine pH 6 (4.5-8.0) Ur Specific [place] 1.030 (1.000-1.035) Urine Protein 3+ H (Negative) Urine Glucose (UA) Negative (Negative) g/dL Urine Ketones Not Reportable Urine Occult Blood 3+ H (Negative) Urine Nitrate Not Reportable Urine Bilirubin Negative (NEGATIVE) Urine Urobilinogen Normal (0.2) E.U./dL Ur Leukocyte Esterase 1+ H (NEGATIVE) Urine RBC >100/hpf H (0-5/HPF) Urine WBC 5-10/hpf H (0-5/HPF) Urine Bacteria Many (>30) H (None) Ur Culture Indicated? Specimen cultured 02/27/21 Range/Units 04:25 WBC (4.5-11.0) X10^3/uL RBC (4.5-5.9) X10^6/uL Hgb (13.5-17.5) g/dL Hct (41-53) % MCV (80-100) fL MCH (26-34) PG MCHC (30-36) % RDW (11.6-14.8) % Plt Count (150-400) X10^3/uL Neut % (Auto) (50-75) % Lymph % (Auto) (25-40) % [place] % (Auto) (3-14) % Eos % (Auto) (2-4) % Baso % (Auto) (0-2) % Neut # (Auto) (0758-6785) /uL Lymph # (Auto) (4656-6244) /uL [place] # (Auto) (0-900) /uL Eos # (Auto) (0-450) /uL Baso # (Auto) (0-100) /uL Sodium (137-145) mmol/L Potassium (3.4-5.1) mmol/L Chloride (98-107) mmol/L Carbon Dioxide (22-32) mmol/L BUN (9-20) mg/dL Creatinine (0.66-1.25) mg/dL Estimated GFR (>60) mL/min BUN/Creatinine Ratio (6-22) Glucose (80-110) mg/dL Lactate 0.8 (0.7-2.1) mmol/L Calcium (8.4-10.2) mg/dL Total Bilirubin (0.2-1.3) mg/dL AST (17-59) IU/L ALT (<50) IU/L Alkaline Phosphatase (38-126) U/L Total Protein (6.3-8.2) g/dL Albumin (3.5-5.0) g/dL Globulin (1.7-4.1) g/dL Albumin/Globulin Ratio (1.0-2.8) Lipase (23-300) U/L Urine Color Urine Appearance Urine pH (4.5-8.0) Ur Specific [place] (1.000-1.035) Urine Protein (Negative) Urine Glucose (UA) (Negative) g/dL Urine Ketones Urine Occult Blood (Negative) Urine Nitrate Urine Bilirubin (NEGATIVE) Urine Urobilinogen (0.2) E.U./dL Ur Leukocyte Esterase (NEGATIVE) Urine RBC (0-5/HPF) Urine WBC (0-5/HPF) Urine Bacteria (None) Ur Culture Indicated? MDM Narrative Medical decision making narrative: Multiple etiologies for patient's symptoms considered including: Postsurgical infection versus bowel obstruction versus multifactorial constipation versus urine infection versus other[] Patient's symptoms improved over duration of stay with above-stated therapies. Findings and discharge diagnosis discussed with patient/family followed by verbalization of understanding Return precautions discussed with patient/family whom verbalize understanding. Patient signed out to myself by Dr. Reyes. Dr. Reyes had consulted with surgery regarding patient changes on imaging. No suspicion for acute infection at this time suspected post surgical. Patient had improvement in department after a bowel movement. Patient also had Talley catheter placed with urine output. Patient has a imaging was reviewed, discrepancy between day and shift supervisor film processing was also discussed with myself which showed thickening of the bladder concerning for cystitis and patient had already been started on oral antibiotics upon discharge. Patient questions answered. Return precautions. Discharge Plan Departure Patient Disposition: Home Clinical Impression: Abdominal pain Qualifiers: Abdominal location: generalized Qualified Code(s): R10.84 - Generalized abdominal pain Constipation Qualifiers: Constipation type: slow transit constipation Qualified Code(s): K59.01 - Slow transit constipation Hematuria Qualifiers: Hematuria type: unspecified type Qualified Code(s): R31.9 - Hematuria, unspecified Instructions: DI for Urinary Tract Infection (UTI), DI for Abdominal Pain-Adult, DI for Constipation Activity Restrictions/Additional Instructions: *You have been diagnosed with [ abdominal pain due to constipation. The blood in your urine is possibly due to an early, mild urine infection, I have sent an antibiotic to your pharmacy ] *What to do: *Take over the counter medications as directed: 1. Metamucil - is a bulk forming laxative and adds fiber 2. Colace - softens your stool 3. Dulcolax suppository - stimulates your bowels *Follow up with your primary care provider in 2-3 days, call for appointment *Return to ER if you should have any new, worsening or concerning symptoms *Drink plenty of water and eat foods high in fiber *Stay as active as you can as this helps move your bowels as well Prescriptions: New cefuroxime axetil 500 mg tablet 500 mg PO BID Qty: 14 RF: 0 No Action losartan 25 mg tablet See Rx Instructions .ROUTE .COMPLEX Qty: 90 RF: 2 montelukast 10 mg tablet 10 mg PO QPM Qty: 90 RF: 1 Referrals: Alex Morelos MD [Primary Care Provider] -
[2021-02-27] MEDS: ONDANSETRON 4 MG/2 ML INJ IV ×2 (04:38→08:23)
[2021-02-27] MEDS: HYDROMORPHONE 0.5 MG INJ IV ×2 (04:38→08:23)
[2021-02-27] MEDS: SODIUM CHLORIDE 0.9% 1,000 ML 125 ML IV (04:38)
[2021-02-27] MEDS: PANTOPRAZOLE 40 MG VIAL IV (04:38)
[2021-02-27 04:39] LABS: Add Manual Diff / Slide Review NO; Basophils Absolute Auto 100 /uL (0-100); Basophils Percent Auto 0.7 % (0-2); Eosinophils Absolute Auto 200 /uL (0-450); Eosinophils Percent Auto 1.8 % (2-4); Hematocrit 40.5 % (41-53); Hemoglobin 13.9 g/dL (13.5-17.5); Lymphocytes Absolute Auto 1100 /uL (1100-4500); Lymphocytes Percent Auto 10.4 % (25-40); Mean Corpuscular HGB Conc 34.3 % (30-36); Mean Corpuscular Hemoglobin 30.4 PG (26-34); Mean Corpuscular Volume 88.6 fL (80-100); Monocytes Absolute Auto 800 /uL (0-900); Monocytes Percent Auto 7.7 % (3-14); Neutrophils Absolute Auto 8600 /uL (1500-7000); Neutrophils Percent Auto 79.4 % (50-75); Platelet Count 197 X10^3/uL (150-400); Red Blood Cell Count 4.57 X10^6/uL (4.5-5.9); Red Cell Distribution Width 13.3 % (11.6-14.8); White Blood Cell Count 10.8 X10^3/uL (4.5-11.0)
[2021-02-27 04:45] LABS: Alanine Aminotransferase 54 IU/L (<50); Albumin 3.5 g/dL (3.5-5.0); Albumin Globulin Ratio 1.4 (1.0-2.8); Alkaline Phosphatase 45 U/L (38-126); Aspartate Aminotransferase 34 IU/L (17-59); BUN Creatinine Ratio 24.7 (6-22); Bilirubin Total 0.5 mg/dL (0.2-1.3); Blood Urea Nitrogen 19 mg/dL (9-20); Calcium 9.1 mg/dL (8.4-10.2); Carbon Dioxide 27 mmol/L (22-32); Chloride 98 mmol/L (98-107); Estimated Glomerular Filt Rate > 60.0 mL/min (>60); Globulin 2.5 g/dL (1.7-4.1); Glucose 136 mg/dL (80-110); HEMOLYSIS < 15 (0-50); Lipase 60 U/L (23-300); Potassium 4.4 mmol/L (3.4-5.1); Sodium 131 mmol/L (137-145)
[2021-02-27 05:00] LABS: Color Urine UA BROWN
[2021-02-27 05:01] LABS: Appearance Urine UA Turbid; Glucose Urine UA NEGATIVE (Negative); Occult Blood Urine UA 3+ (Negative); Protein Urine UA 3+ (Negative); pH Urine UA 6 (4.5-8.0)
[2021-02-27 05:02] LABS: Bilirubin Urine UA NEGATIVE (NEGATIVE); Leukocyte Esterase Urine UA 1+ (NEGATIVE); RBC Urine >100/HPF (0-5/HPF); Urobilinogen Urine UA Normal E.U./dL (0.2); WBC Urine 5-10/HPF (0-5/HPF)
[2021-02-27 05:03] LABS: Culture Indicated Urine Specimen Cultured
[2021-02-27 05:35] LABS: Bacteria Urine Many (>30)
[2021-02-27 06:31] LABS: Lactate (Lactic Acid) 0.8 mmol/L (0.7-2.1)
[2021-02-27 08:28] VITALS: BP 119/75; PULSE 64; RESP 16; O2SAT 97
[2021-02-27 10:57] VITALS: BP 118/75
== END 2021-02-27 11:06 | disposition home or self-care (01) ==
PROVIDERS: Emergency Provider Emergency Medicine; PCP Student in an Organized Health Care Education/Training Program
DX: R10.84 Generalized abdominal pain (principal); K59.01 Slow transit constipation; R31.9 Hematuria, unspecified; R11.2 Nausea with vomiting, unspecified
CPT/HCPCS: 36415; 74177; 80053; 81001; 83605; 83690; 85025; 87077; 87086; 87186; 96361; 96374; 96375; 96376; 99284; C9113; J1170; J2405; Q9967

== ENCOUNTER → 2021-05-10 10:46 | Outpatient (CLI) | payer MEDICARE, OTHER, SELFPAY ==
[2021-05-10 12:32] LABS: Hemoglobin A1C% w Est Avg Glu 5.3 % (4.0-6.0)
[2021-05-10 12:58] LABS: Vitamin B12 847 pg/mL (239-931)
== END ==
PROVIDERS: PCP Student in an Organized Health Care Education/Training Program; Referring Provider Student in an Organized Health Care Education/Training Program; Visit Provider Student in an Organized Health Care Education/Training Program
DX: R73.9 Hyperglycemia, unspecified (principal); R20.2 Paresthesia of skin; M48.02 Spinal stenosis, cervical region; D64.9 Anemia, unspecified
CPT/HCPCS: 36415; 82607; 83036

== ENCOUNTER → 2021-07-21 14:33 | Outpatient (CLI) | payer MEDICARE, OTHER, SELFPAY ==
[2021-07-21 15:33] LABS: COVID19 -Nasal RAPID Negative (Negative)
== END ==
PROVIDERS: PCP Student in an Organized Health Care Education/Training Program; Visit Provider Physician Assistant
DX: Z20.822 Contact with and (suspected) exposure to COVID-19 (principal)
CPT/HCPCS: 87635

== ENCOUNTER → 2022-01-02 17:54 | Outpatient (CLI) | payer MEDICARE, OTHER, SELFPAY ==
--- NOTE | 2022-01-02 17:55 | DI.MRI.S_ITS ---
PROCEDURE: MR LUMBAR SPINE WO CON INDICATIONS: Decreased ROM following surgery TECHNIQUE: Noncontrast sagittal T1 spin echo and T2 fast echo, sagittal STIR, and T2 fast spin echo through the lumbar spine. In cases with scoliosis, additional coronal T2 fast spin echo may be performed. COMPARISON: [facility], MR, MR LUMBAR SPINE WO CON, 07/03/2018, 17:19. [facility], MR, MR LUMBAR SPINE WO CON, 02/01/2020, 17:18. [facility], CT, CT ABDOMEN PELVIS W CON, 02/27/2021, 4:24. FINDINGS: Image quality: Excellent. Alignment and Curvature: Minimal retrolisthesis is seen at L2-L3, with minimal anterolisthesis at L3-L4. Mild retrolisthesis is seen at L5-S1. Bone Marrow: Marrow is of normal overall signal. Scattered foci are seen, which are hyperintense on T1-weighted and T2-weighted imaging, which are most consistent with benign vertebral body hemangiomas. No acute vertebral body compression fractures. There is a chronic L1 anterior wedge deformity, with 10-20% loss of height anteriorly. Spinal Cord: Conus medullaris terminates at the L1 level. Visualized cord demonstrates normal signal and size. A tiny nodule is again seen just distal to the conus medullaris, as on series 2, image 10 measuring 4 mm. Paraspinous Soft Tissues: No paravertebral masses. There is a partially seen right renal cyst laterally measuring at least 3.7 cm. This patient has transitional lumbar anatomy. For the purposes of this examination, the level with the transitional disc space is considered to be S1-S2. By this numbering scheme, tiny vestigial ribs are seen associated with the L1 level. This numbering scheme is chosen to remain consistent with the prior 2019 MRI report. Postoperative changes are seen, with removal of prominent portions of the posterior elements L2 through L5. T12-L1: Moderate loss of disc height is seen. Loss of disc signal is seen. Moderate generalized disc bulge is seen. There is mild left-sided and no significant right-sided neural foraminal narrowing. Minimal central canal narrowing is seen. L1-L2: Mild loss of disc height is seen. Loss of disc signal is seen. At least moderate disc bulge is seen. Bridging endplate osteophytes are seen. At least moderate facet hypertrophy is seen. There is at least moderate bilateral neural foraminal narrowing seen. At least moderate central canal narrowing is seen at this level. When comparison is made with the prior images, these findings are similar. L2-L3: Moderate loss of disc height is seen. Loss of disc signal is seen. Moderate disc bulge is seen, which is eccentric to the right. Moderate facet joint hypertrophy is seen. There is moderate to severe bilateral neural foraminal narrowing seen, with an associated a degree of compression seen upon the exiting nerve roots. The central canal is widely patent. The previously seen central canal narrowing has resolved. L3-L4: [id number] loss of disc height and disc signal can be seen. Moderate generalized disc bulge is seen. At least moderate facet hypertrophy is seen. There is moderate to severe right-sided and moderate left-sided neural foraminal narrowing. No central canal narrowing is seen. The previously seen central canal narrowing has resolved. L4-L5: Asnq-rs-uhaqhpdi loss of disc height is seen. Mild loss of disc signal is seen. At least moderate disc bulge is seen. Moderate to prominent facet hypertrophy can be seen at this level. There is at least moderate bilateral neural foraminal narrowing. No central canal narrowing is seen. When comparison is made with the prior images, these findings are similar. L5-S1: Moderate to severe loss of disc height and disc signal can be seen. Reactive marrow endplate changes are seen, which are hyperintense on T1-weighted and T2-weighted imaging and most consistent with fatty metaplasia (Modic type II changes). At least moderate disc bulge is seen at this level. Moderate facet joint hypertrophy is seen. There is moderate to severe bilateral neural foraminal narrowing seen, with an associated a degree of compression seen upon the exiting nerve roots. No central canal narrowing is seen. The previously seen central canal narrowing is no longer seen. IMPRESSION: Since the prior MRI, there has been removal of prominent portions of the posterior elements, with resolution of the previously seen multilevel central canal narrowing. Several sites of significant neural foraminal narrowing can be seen, with associated exiting nerve root compression. There is transitional lumbar anatomy. A 4 mm soft tissue nodule is again seen just distal to the conus medullaris, which is stable compared to the prior examination. Remote L1 compression deformity noted. Dictated by: Wilfredo Mondragon M.D. on 01/03/2022 at 9:22 Approved by: Wilfredo Mondragon M.D. on 01/03/2022 at 9:34
== END ==
PROVIDERS: PCP Student in an Organized Health Care Education/Training Program; Referring Provider Student in an Organized Health Care Education/Training Program; Visit Provider Student in an Organized Health Care Education/Training Program
DX: M47.816 Spondylosis without myelopathy or radiculopathy, lumbar region (principal); M48.061 Spinal stenosis, lumbar region without neurogenic claudication
CPT/HCPCS: 72148

== ENCOUNTER → 2022-02-05 17:00 | Outpatient (CLI) | payer MEDICARE, OTHER, SELFPAY ==
--- NOTE | 2022-02-05 17:02 | DI.MRI.S_ITS ---
PROCEDURE: MR SHOULDER RT WO CON INDICATIONS: ROTATOR CUFF TEAR OR RUPTURE OF RIGHT SHOULDER TECHNIQUE: Noncontrast oblique coronal T2 fast spin echo with fat saturation, oblique sagittal T1 spin echo and T2 fast spin echo with fat saturation, axial T1 spin echo and T2 fast spin echo with fat saturation through the shoulder. COMPARISON: [facility], CR, XR SHOULDER 2+ VIEWS RIGHT, 01/25/2022, 10:15. [facility], MR, MR SHOULDER RT WO CON, 05/08/2018, 18:44. FINDINGS: Image quality: Images are degraded by metallic artifact despite the use of metal artifact reduction sequences. Some diagnostic information is obtained. Rotator cuff: The distal supraspinatus tendon is obscured by metal artifact related to metallic surgical anchors at the greater tuberosity. There are some findings to suggest a full-thickness retracted supraspinatus tendon tear, although findings could be partially related to signal void and pile up. There is moderate atrophy and grade 2 fatty infiltration of the supraspinatus muscle that has progressed when compared to the MRI from 05/08/2018. The infraspinatus muscle demonstrates tendinosis, but is also partially obscured. A cyst is seen extending medially along the infraspinatus tendon to the myotendinous junction. The teres minor tendon is intact. There is mild subscapularis tendinosis. The distal subscapularis tendon insertion is obscured by metal artifact rotator cuff muscles are otherwise normal in bulk. Bones and bursae: No acute trabecular bone injury. Portions of the humeral head are obscured by metal artifact. The humeral head appears to be mildly high riding although the acromiohumeral interval is obscured. There is cartilage irregularity of the glenohumeral joint with marginal osteophyte formation. Moderate degenerative changes are seen in the acromioclavicular joint with marginal osteophyte formation and subchondral cystic changes. A small amount of subacromial/subdeltoid bursal fluid is present. Capsule and soft tissues: There is mild diffuse labral degeneration without acute displaced tear identified. The proximal biceps long head tendon is not seen, which may be related to metallic artifact versus prior surgery or tendon rupture. The glenohumeral ligaments are grossly intact. IMPRESSION: 1. Suspected full-thickness retracted tear of the supraspinatus tendon, although the distal rotator cuff tendons are obscured by metal hardware despite the use of metal artifact reduction sequences. Moderate atrophy and grade 2 fatty infiltration of the supraspinatus muscle has progressed when compared to the prior MRI from 05/08/2018. Humeral head is mildly high riding. 2. Infraspinatus and subscapularis tendinosis. 3. Biceps long head tendon is not well visualized, which may be related to metal artifact versus prior surgery or tendon tearing. 4. Diffuse labral degeneration without an acute displaced tear. 5. Mild glenohumeral osteoarthrosis and moderate acromioclavicular osteoarthrosis. Dictated by: Osorio Knapp M.D. on 02/06/2022 at 8:32 Approved by: Osorio Knapp M.D. on 02/06/2022 at 8:48
== END ==
PROVIDERS: PCP Student in an Organized Health Care Education/Training Program; Referring Provider Orthopaedic Surgery; Visit Provider Orthopaedic Surgery
DX: M75.101 Unspecified rotator cuff tear or rupture of right shoulder, not specified as traumatic (principal); M19.011 Primary osteoarthritis, right shoulder
CPT/HCPCS: 73221

== ENCOUNTER → 2022-04-03 16:35 | Outpatient (CLI) | payer MEDICARE, OTHER, SELFPAY ==
[2022-04-03 17:48] LABS: Add Manual Diff / Slide Review NO; Basophils Absolute Auto 100 /uL (0-100); Eosinophils Absolute Auto 300 /uL (0-450); Eosinophils Percent Auto 4.6 % (2-4); Hematocrit 43.7 % (41-53); Hemoglobin 15.3 g/dL (13.5-17.5); Lymphocytes Absolute Auto 1700 /uL (1100-4500); Lymphocytes Percent Auto 25.3 % (25-40); Mean Corpuscular HGB Conc 34.9 % (30-36); Mean Corpuscular Volume 88.8 fL (80-100); Monocytes Absolute Auto 500 /uL (0-900); Neutrophils Absolute Auto 4100 /uL (1500-7000); Neutrophils Percent Auto 61.1 % (50-75); Platelet Count 194 X10^3/uL (150-400); Red Blood Cell Count 4.93 X10^6/uL (4.5-5.9); Red Cell Distribution Width 13.5 % (11.6-14.8); White Blood Cell Count 6.7 X10^3/uL (4.5-11.0)
[2022-04-03 18:08] LABS: Alanine Aminotransferase 30 IU/L (<50); Albumin Globulin Ratio 1.6 (1.0-2.8); Alkaline Phosphatase 47 U/L (38-126); Aspartate Aminotransferase 31 IU/L (17-59); BUN Creatinine Ratio 34.2 (6-22); Bilirubin Total 0.4 mg/dL (0.2-1.3); Blood Urea Nitrogen 25 mg/dL (9-20); Calcium 8.8 mg/dL (8.4-10.2); Carbon Dioxide 28 mmol/L (22-32); Chloride 104 mmol/L (98-107); Cholesterol 167 mg/dL (140-199); Estimated Glomerular Filt Rate > 60 mL/min (>60); Globulin 2.5 g/dL (1.7-4.1); Glucose 98 mg/dL (80-110); HDL Cholesterol 53 mg/dL (40-60); HEMOLYSIS 16 (0-50); LDL Cholesterol Calculated 95 mg/dL (<100); Potassium 4.4 mmol/L (3.4-5.1); Sodium 140 mmol/L (137-145); Total Protein 6.5 g/dL (6.3-8.2); Triglycerides 93 mg/dL (35-150)
[2022-04-04 21:35] LABS: Hep C Virus Ab w/Reflex Quant NEGATIVE s/c (NEGATIVE)
== END ==
PROVIDERS: PCP Student in an Organized Health Care Education/Training Program; Referring Provider Student in an Organized Health Care Education/Training Program; Visit Provider Student in an Organized Health Care Education/Training Program
DX: I10 Essential (primary) hypertension (principal); Z13.220 Encounter for screening for lipoid disorders; Z11.59 Encounter for screening for other viral diseases
CPT/HCPCS: 36415; 80053; 80061; 85025; 86803

== ENCOUNTER → 2022-05-21 10:52 | Outpatient (CLI) | payer MEDICARE, OTHER, SELFPAY ==
--- NOTE | 2022-05-21 10:53 | DI.RAD.S_ITS ---
PROCEDURE: XR HIP W PEL IF DONE LT 2V INDICATIONS: Limited ROM w/o trauma TECHNIQUE: AP pelvis with lateral view of the left hip. COMPARISON: None. FINDINGS: Bones: No acute fractures or dislocations. Postsurgical changes are seen from right total hip arthroplasty. Pelvic ring appears intact. No suspicious bony lesions. Moderate to severe joint space narrowing is seen in the superior left hip with marginal osteophyte formation, subchondral sclerosis, and subchondral cystic changes. Osseous protuberance at the superolateral femoral head/neck junction can be seen in the setting of cam type femoroacetabular impingement. Degenerative changes are seen in the included lower lumbar spine. Soft tissues: The visualized bowel gas pattern is normal. No suspicious soft tissue calcifications. IMPRESSION: 1. Moderate to severe left hip osteoarthrosis. 2. Cam type deformity of the left femoral head/neck junction can be seen in the setting of femoroacetabular impingement. 3. Postsurgical changes from right total hip arthroplasty. 4. Degenerative changes in the included lumbar spine. Dictated by: Osorio Knapp M.D. on 05/21/2022 at 17:08 Approved by: Osorio Knapp M.D. on 05/21/2022 at 17:09
== END ==
PROVIDERS: PCP Student in an Organized Health Care Education/Training Program; Referring Provider Student in an Organized Health Care Education/Training Program; Visit Provider Student in an Organized Health Care Education/Training Program
DX: M16.11 Unilateral primary osteoarthritis, right hip (principal); M47.816 Spondylosis without myelopathy or radiculopathy, lumbar region; M25.852 Other specified joint disorders, left hip; Z96.641 Presence of right artificial hip joint
CPT/HCPCS: 73502

== ENCOUNTER → 2022-08-03 12:57 | Outpatient (CLI) | payer MEDICARE, OTHER, SELFPAY ==
[2022-08-03 16:04] LABS: Influenza A - CEPHEID Flu A NEGATIVE (NEGATIVE); Influenza B - CEPHEID Flu B NEGATIVE (NEGATIVE); Respiratory Syncytial Virus Negative (Negative)
[2022-08-03 16:08] LABS: COVID-19 CEPHEID 4-PLEX PCR Negative (Negative)
== END ==
PROVIDERS: PCP Student in an Organized Health Care Education/Training Program; Visit Provider Nurse Practitioner Family
DX: J06.9 Acute upper respiratory infection, unspecified (principal); Z20.822 Contact with and (suspected) exposure to COVID-19
CPT/HCPCS: 0241U

== ENCOUNTER → 2022-09-17 13:32 | Outpatient (CLI) | payer MEDICARE, OTHER, SELFPAY ==
--- NOTE | 2022-09-17 13:34 | DI.RAD.S_ITS ---
PROCEDURE: XR HAND LT MIN 3V INDICATIONS: 4th finger pain TECHNIQUE: 3 views of the hand(s) acquired. COMPARISON: None. FINDINGS: Bones: No fractures or dislocations. Carpal bones are normally aligned. No suspicious bony lesions. Mild polyarticular osteoarthritic degenerative changes. Soft tissues: No suspicious soft tissue calcifications. IMPRESSION: No fracture. No acute osseous lesion. If symptoms and/or clinical suspicion for pathology persists, further assessment with repeat radiographs (7-10 days) or advanced imaging (e.g. CT, MRI or bone scan) should be considered. Dictated by: Bryanna Bautista MD, PhD on 09/17/2022 at 14:44 Approved by: Bryanna Bautista MD, PhD on 09/17/2022 at 14:45
== END ==
PROVIDERS: PCP Student in an Organized Health Care Education/Training Program; Referring Provider Student in an Organized Health Care Education/Training Program; Visit Provider Student in an Organized Health Care Education/Training Program
DX: M79.645 Pain in left finger(s) (principal); M19.90 Unspecified osteoarthritis, unspecified site
CPT/HCPCS: 73130

== ENCOUNTER → 2022-11-13 17:08 | Outpatient (CLI) | payer MEDICARE, OTHER, SELFPAY ==
--- NOTE | 2022-11-13 | DI.MRI.S_ITS ---
PROCEDURE: MR HIP LT WO CON INDICATIONS: scoliosis - hip pain TECHNIQUE: Noncontrast coronal T1 spin echo and STIR through the bony pelvis. Coronal and axial T2 fast spin echo with fat saturation, sagittal T1 spin echo, and oblique axial T2 fast spin echo with fat saturation through the hip. COMPARISON: [facility], CR, XR PELVIS WITH LATERAL HIP LEFT, 10/31/2022, 11:22. [facility], CR, XR HIP W PEL IF DONE LT 2V, 05/21/2022, 11:03. FINDINGS: Image quality: Degraded by hip arthroplasty artifact. Bones and joints: Moderate left hip periarticular osteophyte formation and subchondral cyst formation within the acetabulum. Right hip arthroplasty. Bone marrow of the pelvic ring and proximal femurs show normal signal throughout. No intraosseous lesions or fractures. No avascular necrosis of the femoral heads. The visualized lower lumbar spine appears normally aligned. Tendons and ligaments: The gluteus medius and minimus tendons appear intact, without associated muscle atrophy. Mild T2 signal elevation within the left gluteus minimus tendon at the femoral insertion site, consistent with tendinopathy. The nearby proximal iliotibial band also appears intact. The iliopsoas tendon appears intact, without adjacent bursal fluid collections or evidence for impingement syndrome. The origin of the hamstring tendon is intact at the ischial tuberosity, as well as the associated sacrotuberous ligament. There is moderate T2 signal elevation surrounding the proximal hamstring tendon. The straight and reflected heads of the rectus femoris muscle origin appear intact, as well as the conjoint tendon. The ligamentum teres appears intact where visualized. Labrum and cartilage: Diffuse degenerative tearing of the left hip labrum. All Cartilage surface of the femoral head appears of normal thickness. The alpha angle of the femur is within normal limits at less than 55 degrees. Soft tissues: Visualized muscles demonstrate normal bulk and internal signal. Quadratus femoris muscle demonstrates no internal edema to suggest ischiofemoral impingement. The proximal sciatic neurovascular bundle appears normal adjacent to the hamstring tendons. No free pelvic fluid. Bladder wall thickness is normal. Prostate is enlarged. IMPRESSION: 1. Left hip osteoarthritis associated with degenerative left hip labral tearing. 2. Insertional tendinopathy of the left gluteus minimus tendon. 3. Left hamstring tendinopathy. 4. Prostate enlargement. Recommend correlation with PSA values. Dictated by: Bobbi Gamboa M.D. on 11/14/2022 at 8:47 Approved by: Bobbi Gamboa M.D. on 11/14/2022 at 8:50
== END ==
PROVIDERS: PCP Student in an Organized Health Care Education/Training Program; Referring Provider Orthopaedic Surgery; Visit Provider Orthopaedic Surgery
DX: M16.12 Unilateral primary osteoarthritis, left hip (principal); M41.9 Scoliosis, unspecified; N40.0 Benign prostatic hyperplasia without lower urinary tract symptoms; S73.102A Unspecified sprain of left hip, initial encounter
CPT/HCPCS: 73721

== ENCOUNTER → 2022-12-09 10:20 | Outpatient (CLI) | payer MEDICARE, OTHER, SELFPAY ==
[2022-12-09 11:35] LABS: Appearance Urine UA CLEAR; Bilirubin Urine UA NEGATIVE (NEGATIVE); Color Urine UA YELLOW; Glucose Urine UA NEGATIVE (Negative); Ketones Urine UA NEGATIVE (NEGATIVE); Leukocyte Esterase Urine UA NEGATIVE (NEGATIVE); Nitrite Urine UA NEGATIVE (Negative); Occult Blood Urine UA TRACE-INTACT (Negative); Protein Urine UA NEGATIVE (Negative); Specific Gravity Urine UA 1.025 (1.000-1.035); Urobilinogen Urine UA 0.2 E.U./dL (0.2); pH Urine UA 5.5 (4.5-8.0)
[2022-12-09 11:55] LABS: Add Manual Diff / Slide Review NO; Basophils Absolute Auto 100 /uL (0-100); Basophils Percent Auto 1.1 % (0-2); Eosinophils Absolute Auto 200 /uL (0-450); Eosinophils Percent Auto 3.4 % (2-4); Hematocrit 47.1 % (41-53); Hemoglobin 15.9 g/dL (13.5-17.5); Lymphocytes Absolute Auto 1300 /uL (1100-4500); Lymphocytes Percent Auto 24.9 % (25-40); Mean Corpuscular HGB Conc 33.8 % (30-36); Mean Corpuscular Hemoglobin 29.8 PG (26-34); Mean Corpuscular Volume 88.1 fL (80-100); Monocytes Absolute Auto 500 /uL (0-900); Monocytes Percent Auto 9.1 % (3-14); Neutrophils Absolute Auto 3200 /uL (1500-7000); Neutrophils Percent Auto 61.5 % (50-75); Platelet Count 180 X10^3/uL (150-400); Red Blood Cell Count 5.35 X10^6/uL (4.5-5.9); White Blood Cell Count 5.3 X10^3/uL (4.5-11.0)
[2022-12-09 11:59] LABS: Bacteria Urine None Seen; Culture Indicated Urine Cult Not Indicated; RBC Urine None Seen (0-5/HPF); Squamous Epithelial Cell Urine None Seen (0-5/HPF); WBC Urine None Seen (0-5/HPF)
[2022-12-09 12:08] LABS: BUN Creatinine Ratio 26.8 (6-22); Blood Urea Nitrogen 19 mg/dL (9-20); Carbon Dioxide 27 mmol/L (22-32); Chloride 105 mmol/L (98-107); Estimated Glomerular Filt Rate > 60 mL/min (>60); Glucose 93 mg/dL (80-110); HEMOLYSIS < 15 (0-50); Potassium 4.2 mmol/L (3.4-5.1); Sodium 138 mmol/L (137-145)
[2022-12-10 02:36] LABS: Labcorp Hemoglobin (Hb) A1c 5.9 % (4.8-5.6)
== END ==
PROVIDERS: PCP Student in an Organized Health Care Education/Training Program; Referring Provider Orthopaedic Surgery; Visit Provider Orthopaedic Surgery
DX: Z01.818 Encounter for other preprocedural examination; R73.9 Hyperglycemia, unspecified; Z01.812 Encounter for preprocedural laboratory examination; N39.0 Urinary tract infection, site not specified
CPT/HCPCS: 36415; 80048; 81001; 83036; 85025

== ENCOUNTER → 2022-12-12 15:31 | Outpatient (CLI) | payer MEDICARE, OTHER, SELFPAY | PROVIDERS: PCP Student in an Organized Health Care Education/Training Program; Referring Provider Orthopaedic Surgery; Visit Provider Orthopaedic Surgery | DX: Z01.818 Encounter for other preprocedural examination (principal) | CPT/HCPCS: 93005; 93010 ==

== ENCOUNTER → 2022-12-17 13:18 | Outpatient (CLI) | payer MEDICARE, OTHER, SELFPAY ==
--- NOTE | 2022-12-17 13:19 | DI.RAD.S_ITS ---
PROCEDURE: XR ANKLE RT MIN 3V INDICATIONS: Right ankle pain w/o trauma, worsening TECHNIQUE: 3 views of the ankle were acquired. COMPARISON: None. FINDINGS: Bones: No acute appearing fractures. There is irregular periostitis along the lateral aspect of the distal tibia at the syndesmosis, potentially dystrophic calcification of remote injury. The ankle mortise is maintained. There are subcortical cystic changes and lucency at the tibiotalar articulation. Small curvilinear dystrophic calcification along the medial malleolus. Very large plantar calcaneal spur. Soft tissues: No tibiotalar joint effusion. Dystrophic calcification scattered in the Achilles tendon and at the tendinous insertion. IMPRESSION: 1. No acute fractures. 2. Chronic appearing multifocal dystrophic ligamentous and tendinous calcification. 3. Degenerative changes at the tibiotalar joint. Dictated by: Kalie Rainey M.D. on 12/17/2022 at 17:08 Approved by: Kalie Rainey M.D. on 12/17/2022 at 17:12
== END ==
PROVIDERS: PCP Student in an Organized Health Care Education/Training Program; Referring Provider Student in an Organized Health Care Education/Training Program; Visit Provider Student in an Organized Health Care Education/Training Program
DX: S96.911A Strain of unspecified muscle and tendon at ankle and foot level, right foot, initial encounter (principal); X58.XXXA Exposure to other specified factors, initial encounter
CPT/HCPCS: 73610

== ENCOUNTER 2023-02-21 14:45 | Observation (INO) | payer MEDICARE, OTHER, SELFPAY ==
[2023-02-12 09:44] VITALS: BMI 24.3
[2023-02-20] VITALS (13 sets, daily range): BP systolic 80–119; BP diastolic 50–74; PULSE 55–75; RESP 10–18; TEMP 35.9–36.6; O2SAT 96–100; BMI 24.3
--- NOTE | 2023-02-20 | DI.RAD.S_ITS ---
PROCEDURE: XR HIP W PEL IF DONE LT 2V INDICATIONS: total left hip TECHNIQUE: 2 view(s) of the hip acquired. COMPARISON: [facility], MATY, XR HIP W PEL IF DONE LT 2V, 02/20/2023, 16:06. [facility], MATY, XR HIP W PEL IF DONE LT 2V, 05/21/2022, 11:03. FINDINGS: Bones: Left hip arthroplasty with surrounding postoperative changes. Right hip arthroplasty also again seen. Lumbosacral degenerative changes are present. Very trace lucency is seen at the neck. Soft tissues: Postoperative soft tissue changes. IMPRESSION: Postoperative changes following left hip arthroplasty. Dictated by: Peter Palomares M.D. on 02/20/2023 at 17:40 Approved by: Peter Palomares M.D. on 02/20/2023 at 17:41
--- NOTE | 2023-02-20 06:00 | DI.RAD.S_ITS ---
PROCEDURE: XR HIP W PEL IF DONE LT 2V INDICATIONS: PATRICK TECHNIQUE: 5 intraoperative fluoroscopic views of the hip were acquired. COMPARISON: [facility], CR, XR HIP W PEL IF DONE LT 2V, 05/21/2022, 11:03. FINDINGS: Intraoperative fluoroscopic images of left hip shows left total hip arthroplasty in progress. IMPRESSION: Fluoro guidance was provided intraoperatively for left total hip arthroplasty. Dictated by: Crescencio Freitas M.D. on 02/20/2023 at 16:37 Approved by: Crescencio Freitas M.D. on 02/20/2023 at 16:38
[2023-02-20] MEDS: ACETAMINOPHEN 325 MG TABLET 975 MG PO (11:26)
[2023-02-20] MEDS: LACTATED RINGERS 1,000 ML 42 ML IV ×2 (11:26→16:15)
[2023-02-20] MEDS: CELECOXIB 200 MG CAPSULE PO (11:26)
[2023-02-20] MEDS: VANCOMYCIN 1,000 MG/200 ML PIGGYBACK 200 MG IV (12:28)
--- NOTE | 2023-02-20 13:10 | PM.PREOP ---
Pre-operative Note Interval Note History & Physical reviewed/Exam performed by Physician: Yes Changes to H&P: No
--- NOTE | 2023-02-20 13:11 | PM.OP.1 ---
Operative Date/Time/Diagnoses Date of procedure: 02/20/23 Time of procedure: 14:00 Pre-op diagnosis: left hip OA Post-op diagnosis: same Procedure & Clinicians Procedure: left total hip arthroplasty anterior approach Same procedure as scheduled: Yes Indications: The patient has had progressively worsening left hip pain with radiographic changes consistent with arthritis. Non-operative management has failed and the patient has requested total hip replacement. The risks, benefits and alternatives to surgery were discussed with the patient prior to proceeding. Risks discussed included, but were not limited to, failure to relieve pain, leg length discrepancy, dislocation, stiffness, infection, nerve damage, deep venous thrombosis, pulmonary embolism, stroke, coma, heart attack, permanent paralysis and , as well as the potential need for eventual revision of the prosthetic. Surgeon: Reema Figueroa Count Team Member: Scott Medel Anesthesia Type: Spinal Operative Notes Findings: Severe left hip osteoarthritis, adequate bone and stability moderate bleeding from the medullary canal Closure Type: primary Prosthetic devices, grafts, tissues, transplants, or devices: Figueroa and nephew 58 mm R3 cup, dual mobility liner, polar size 1 standard stem with collar, 28 x 44 +0 dual mobility, 16.5 mm screw Estimated Blood Loss (mL): 600 Blood products transfused: none Procedure in detail: The patient was brought to the operating room. Patient was carefully positioned in the supine position. Time-out was performed and antibiotics were given. Anesthesia was induced. He was positioned in the on the table in order to allow hyperextension of the hip. The left lower extremity was prepped and draped in a standard sterile fashion. An anterior left hip incision was made 1 fingerbreadth lateral to the anterior superior iliac spine and extended distally towards the greater trochanter. Dissection was carried out through skin and subcutaneous tissues. Superficial hemostasis was achieved. The fascia over the tensor fascia marko was defined and incised with a knife. Two Allis clamps were used to grasp the fascia. Tensor fascia marko was retracted laterally. A gelpi retractor was placed. Dissection was carried out down along the neck. The circumflex vessels were carefully identified and cauterized with the Aqua Mantis. There was good visualization of the femoral neck. A Cobra was placed superior to the neck and the gluteus fibers were carefully stripped from that superior aspect of the capsule. A 2nd retractor was placed along the inferior aspect of the neck. The rectus insertion along the capsule was partially released. A 3rd retractor that was then gently placed over the rim of the acetabulum under the rectus. Capsule was carefully incised and released from the intertrochanteric line circumferentially superior to the mid sagittal line and inferiorly to the mid sagittal line until the lesser trochanter was palpable. A tag stitch was placed both in the superior and inferior limb of the capsular insertion. Along the acetabulum capsule was also released up to the mid sagittal 12:00 position. A portion of the labrum was resected. A saw was used to perform an osteotomy at the level of the intertrochanteric line and the junction of the superior femoral neck leaving approximately 1 finger breath of residual inferior neck above the lesser trochanter. There was moderate bleeding from the canal. He attempted hemostasis was performed with the Aquamantys and the cautery. Normal bleeding from his canal. A 2nd cut was made along the femoral neck at the base of the head and a napkin ring of neck was removed. Corkscrew was placed in the femoral head and the head was removed without difficulty. Retractors were then repositioned around the acetabulum. Residual labrum was resected and additional osteophytes were removed. A reamer that was 4 mm below the templated size was placed by hand in the acetabulum and it was reamed to centralize the acetabulum. It was then reamed up to 2 under the templated size and fluoroscopy was brought in to confirm the position of the reaming and depth of reaming. I reamed 1 under the anticipated size. A trial cup was placed and noted that it was appropriately sized and fluoroscopy confirmed position and depth. The component was open and inserted without difficulty fluoroscopic imaging was used to confirm that the cup had been adequately seated and was well positioned. It was carefully positioned to make sure that there was no impingement on the iliopsoas tendon. The iliopsoas tendon was easily visualized in the anterior aspect of the cup. It was further stabilized with a single screw. Dual mobility Liner was placed. The cup was tested and noted to be stable. Attention was then directed to the femur. The femur was gently hyperextended additional capsular release was performed as needed in order to allow adequate visualization of the proximal femur with elevation of the femur. Patient was placed in a hyperextended slightly adducted position with maximum external rotation. Box osteotome was used to check for any residual neck as well as sclerotic bone along the trochanter. [place] pepper was placed in the femur. Additional broaching was performed. Canal finder was used to determine the alignment of the canal and position. Size 0-1 broach was placed. The canal was then appropriately broached up to the templated size as long as there was adequate stability of the broach and serial advancement of the broach without excessive impingement. Specific attention was directed at avoiding varus attempting to direct the distal aspect of the broach more anteriorly and avoiding excessive anteversion. Trial reduction showed acceptable range of motion, good stability, no posterior impingement, taoism of leg length and appropriate lateral shuck. I also hyperflexed the hip and checked that there was no impingement anteriorly and there was good stability with flexion, adduction and internal rotation. He had a very tight hip preoperatively. I was able to position him intraoperatively with hyperextension to the floor flexion to 100? with no impingement and he had adequate Shuck and apparent adequate offset. There was no significant bleeding after the canal was prepped. Marcaine and Exparel were injected. The stem was placed without difficulty. Repeat trial reduction and x-ray showed acceptable overall position, length, and no evidence of the femoral fracture. Final head was placed. Wound was meticulously irrigated with normal saline. The hip was reduced and additional Exparel and Marcaine were injected. The capsule was closed with interrupted nonabsorbable sutures. The fascia of the tensor was closed with interrupted and running Vicryl. No drain was placed. Any tensor fascia marko muscle that appeared to be contused or injured which was a minimal amount was carefully resected. Capsule around the tensor was injected with Exparel and Marcaine. The skin was closed with barbed stitches for the subcutaneous tissue and skin. We also used surgical glue. The wound was dressed sterilely. Brief Betadine soak was also used and was meticulously irrigated with normal saline. Patient was transferred to recovery room in satisfactory condition. Complications: none Post-operative Condition: stable Disposition: Acute Care Plan for aftercare: The patient will be maintained on a standard total hip replacement protocol with weight bearing as tolerated and anterior hip precautions. The patient will receive Aspirin and sequential compression devices for DVT prophylaxis. The patient will be discharged home when safe for the home environment.
[2023-02-20] MEDS: CEFAZOLIN 2 GM/100 ML PREMIX 100 ML IV ×2 (13:27→20:59)
--- NOTE | 2023-02-20 14:15 | SUR.OPER ---
Supine on padded [place] table with bilateral legs secured in padded positioning boots and suspended in positioning spars, operative leg in traction per surgeon. Head on one pillow. Arm on non-operative side secured on padded armboard <90 degrees abduction. Arm on operative side padded and resting across chest then secured with tape over sheet. Padded perineal post in place per surgeon.
[2023-02-20] MEDS: BUPIVACAINE LIPOSOME 266 MG/20 ML VIAL INJ (14:18)
[2023-02-20] MEDS: BUPIVACAINE 0.5% W/ EPI (PF) 30 ML VIAL INJ (14:23)
[2023-02-20 17:10] LABS: Hematocrit 35.6 % (41-53); Hemoglobin 12.1 g/dL (13.5-17.5)
[2023-02-20] MEDS: ONDANSETRON 4 MG/2 ML INJ IV ×2 (17:31→18:16)
[2023-02-20] MEDS: LACTATED RINGERS 1,000 ML 100 ML IV (18:08)
[2023-02-20] MEDS: MONTELUKAST 10 MG TABLET PO (18:08)
[2023-02-20] MEDS: ACETAMINOPHEN 325 MG TABLET 650 MG PO ×2 (18:09→23:25)
[2023-02-20] MEDS: IBUPROFEN 400 MG TABLET PO ×2 (18:09→21:04)
[2023-02-20] MEDS: ASPIRIN EC 81 MG TABLET PO (21:01)
[2023-02-20] MEDS: FAMOTIDINE 20 MG TABLET PO (23:25)
[2023-02-21] VITALS (7 sets, daily range): BP systolic 79–97; BP diastolic 42–55; PULSE 60–83; RESP 18; TEMP 37.2–37.3; O2SAT 92–94
[2023-02-21] MEDS: ACETAMINOPHEN 325 MG TABLET 650 MG PO ×2 (05:30→17:05)
[2023-02-21] MEDS: IBUPROFEN 400 MG TABLET PO ×5 (05:31→20:45)
[2023-02-21] MEDS: CEFAZOLIN 2 GM/100 ML PREMIX 100 ML IV (05:31)
[2023-02-21 06:06] LABS: Hematocrit 31.6 % (41-53)
--- NOTE | 2023-02-21 07:11 | PM.DS.1 ---
History of Present Illness History of Present Illness Date Patient Seen: 02/21/23 Time Patient Seen: 07:11 Chief complaint: Left PATRICK *OPB* Narrative: Operative Date/Time/Diagnoses Date of procedure: 02/20/23 Time of procedure: 14:00 Pre-op diagnosis: left hip OA Post-op diagnosis: same Procedure & Clinicians Procedure: left total hip arthroplasty anterior approach Same procedure as scheduled: Yes Indications: The patient has had progressively worsening left hip pain with radiographic changes consistent with arthritis. Non-operative management has failed and the patient has requested total hip replacement. The risks, benefits and alternatives to surgery were discussed with the patient prior to proceeding. Risks discussed included, but were not limited to, failure to relieve pain, leg length discrepancy, dislocation, stiffness, infection, nerve damage, deep venous thrombosis, pulmonary embolism, stroke, coma, heart attack, permanent paralysis and , as well as the potential need for eventual revision of the prosthetic. Surgeon: Reema Figueroa Shell Sieve Operator: Scott Medel Anesthesia Type: Spinal Operative Notes Findings: Severe left hip osteoarthritis, adequate bone and stability moderate bleeding from the medullary canal Closure Type: primary Prosthetic devices, grafts, tissues, transplants, or devices: Figueroa and nephew 58 mm R3 cup, dual mobility liner, polar size 1 standard stem with collar, 28 x 44 +0 dual mobility, 16.5 mm screw Estimated Blood Loss (mL): 600 Blood products transfused: none Discharge Providers Provider Discharge Date: 02/21/23 Primary care physician: Alex Morelos MD Consults: 02/20/23 06:00 Consult to Anesthesiology Routine Comment: Consulting Provider: Anesthesiologist Reason for consultation: Regional block for post operative pain control 02/20/23 17:48 Consult to Discharge Planning Routine Comment: Consult to Occupational Therapy Evaluate & Treat Comment: Physician Instructions: Evaluate and treat Consult to Physical Therapy Evaluate & Treat Comment: Physician Instructions: post op PATRICK protocol Discharge provider: January Moore PA-C Summary Hospital Course Discharge Diagnosis: Left hip osteoarthritis, s/p left total hip arthroplasty Hospital Course: Mr Robbins's hospital course was unremarkable. On the morning of POD# 1, he was feeling well but unsure about going home as he had not yet worked w/ PT. He has a h/o orthostatic hypotension following other surgical procedures and had not yet worked w/ PT. His pain was well-controlled w/ non-narcotic pain medication and he was eating and voiding without difficulty. Exam Vital Signs (past 8 hours): Oxygen Delivery Method Room Air Oxygen Flow Rate 0 Narrative Exam Narrative: 5/5 strength in hip flexors, quadriceps, hamstrings, DF, PF, EHL on left. Sensation to light touch intact throughout LLE. Calf soft, compressible, nontender and without palpable cords or masses. Aquacel dressing CDI. Objective Labs 02/21/23 05:49 Labs: Laboratory Results - last 24 hr 02/20/23 02/21/23 17:05 05:49 Hgb 12.1 L 11.0 L Hct 35.6 L 31.6 L PFSH Medical History (Updated 02/12/23 @ 10:44 by Blanca Jones RN) Abdominal bloating Acne Anesthesia complication Benign prostatic hyperplasia with lower urinary tract symptoms (06/03/16) BPH (benign prostatic hyperplasia) Cancer of kidney (~2014) Chickenpox Essential hypertension (10/07/17) GERD (gastroesophageal reflux disease) GERD (gastroesophageal reflux disease) Hearing loss Hearing loss History of colonic polyps (06/03/16) History of renal cell cancer (06/03/16) Hypertension Lumbar spinal stenosis Measles Osteoarthritis of knees, bilateral (~2014) Primary osteoarthritis of hip (06/03/16) Right rotator cuff tear Urinary incontinence Surgical History (Updated 02/21/23 @ 07:13 by January Moore PA-C) H/O transurethral resection of prostate History of kidney surgery (2014) History of right hip replacement (2005) Hx of bilateral cataract extraction (2021) Hx of cervical spine surgery Hx of colonoscopy with polypectomy Hx of laminectomy Hx of total knee arthroplasty (~2014) S/P rotator cuff repair Family History Brother Cancer Father Cancer Mother No problems noted. Social History household members: spouse Smoking Status: Never smoker alcohol intake: former Discharge Assessment & Plan Assessment and Plan Assessment: Left hip osteoarthritis, s/p left total hip arthroplasty Plan of Treatment: Discharge home after PT if PT agrees and pt feeling confident in abilities to care for himself. Outpt PT, ASA BID x 6 weeks for VTE prophylaxis, multimodal pain control. F/u in office in 2 weeks as scheduled. Discharge Plan Discharge Plan Patient Disposition: Home Discharge orders & Medications Discharge Orders: Discharge (Order); Ordered 02/21/23 Ordered By: January Moore Prescriptions: New acetaminophen 325 mg Tablet 650 mg PO Q6H PRN (Reason: fever or pain) Qty: 240 0RF aspirin 81 mg Tablet,Delayed Release (Dr/Ec) 81 mg PO BID Qty: 90 0RF docusate sodium 100 mg Capsule 100 mg PO BID PRN (Reason: constipation) Qty: 60 1RF hydrocodone-acetaminophen 5-325 mg Tablet 1 tab PO Q4H PRN (Reason: Pain, Moderate (4-6)) Qty: 30 0RF ibuprofen 400 mg Tablet 400 mg PO Q4H PRN (Reason: fever or pain) Qty: 120 0RF Continued montelukast 10 mg tablet 10 mg PO QPM Qty: 90 2RF losartan 25 mg tablet 25 mg PO BEDTIME Follow up/Referrals: Alex Morelos MD [Primary Care Provider] - Reema Figueroa MD [Physician] - As previously scheduled (Follow up with Anabel Lawton PA-C, on 03/07/2023 @ 3:00 pm at [facility].) Diet/Activity/Treatments Diet: Diet as Tolerated Activity: Weightbearing as tolerated to left leg. Anterior hip precautions. Cold/Heat Therapy: Ice to hip as needed for pain. Skin/Wound/Dressing Care Report to your healthcare provider any signs of infection, such as:: chills, fever, night sweats, unusual drainage and unusual redness Dressing: May shower. Leave dressing in place until follow up in office. No bathing or otherwise soaking incision. Call the office if the dressing becomes saturated inside. Visit Report/Discharge Packet Instructions: DI for Hip Replacement Stand Alone Forms: Patient Portal/API, Surgery Discharge Discharge Data Primary Care Provider: Alex Morelos Attending Provider: Reema Figueroa Quality VTE Deep Vein Thrombosis/Pulmonary Embolism Present on Admission: No
[2023-02-21] MEDS: ASPIRIN EC 81 MG TABLET PO ×2 (08:39→20:02)
[2023-02-21] MEDS: DOCUSATE 100 MG CAPSULE PO ×2 (08:39→20:03)
--- NOTE | 2023-02-21 09:17 | CM.DANOTE ---
DCP: Case received, EMR reviewed and met with patient. Introduced self and role. Was able to obtain information regarding patient's baseline activity level prior to his surgery. DCP assessment completed with information currently available. Patient is a 77 year old male who admitted yesterday morning to the care of the orthopedic team. PCP: Dr. Drake. Payer: confirmed: Medicare/[facility]. Patient came to the hospital via private vehicle for a surgical procedure. Patient had left total hip arthroplasty, anterior approach. Patient has history of left hip osteoarthritis. Met with patient in his room. He was sitting up in bed having breakfast, alert. Confirmed that he resides here in [place] with spouse, Roxie. At his baseline, he is independent, and is a school crossing guard, has been doing this for 11 years. His concern is discharging today, his does work some days. Asked him if he had prepared for this, if he has concerns, stated that he did not. He asked about getting a caregiver in the home, let him know raphael this would be out of pocket cost, and he stated, he didn't want that. He did express interest in home health. He has not yet worked with P.T. Let him know that if would be up to orthopedic to see if he needs to stay another day, but this is an outpatient surgery. P: DCP to continue to follow. Plan is discharge today, but will depend upon how he does with P.T. Melissa Melo RN/Asbestos Wire Finisher Discharge Planning/Care Management CM Discharge Assessment Start: 02/21/23 09:14 Freq: Status: Active Protocol: Document 02/21/23 09:14 (Rec: 02/21/23 09:17 [id number]) Discharge Planning Assessment Assigned Tying In Machine Operator Melissa Melo RN/Asbestos Wire Finisher Advance Directives? No History Provided By Patient,Medical Record Prior Living Arrangements House Household Members spouse Type of transporation used prior to Drives own vehicle admit Independent with ADL's Yes Is patient alert and oriented? Yes Caregiver for Another No Barriers to Discharge No Comment Patient is concerned, since his spouse works. Discharge Plan Home Transportation Arrangement Spouse Referrals Initiated Other Additional Comment Will have to see how he does with P.T, may need home health . Whiteboard Updated in Patient Room with Yes name and ext. # of Tying In Machine Operator Review Status In Process Next Review Type Continued Stay Review Pre-Anesthesia Assessment Start: 02/12/23 09:44 Freq: Status: Complete Protocol: Document 02/12/23 09:44 CAB (Rec: 02/12/23 10:45 CAB [id number]) Pre-Anesthesia Assessment Preferred Name Jluis Patient Information Reviewed Via Phone Assessment Assessment Completed With Patient Diagnostic Results BMP/CMP,CBC,EKG Comment Labs/EKG @ [facility] Primary Care Provider Taco Gautam Seen Specialist in Last 12 Months Yes Specialist Seen Orthopedist Primary Language [place] Citizen Sharemilker Required No Height 6 ft 1 in Weight 184 lb Body Mass Index (BMI) 24.3 Hearing Ability Hearing Impaired Visual Assist Glasses Dentition Type Teeth, Natural Present Barriers to Learning None Hx Anesthesia Reactions Yes: I don't wake up easy, it 's a slow process Hx Family Anesthesia Reaction No Hx Malignant Hyperthermia No Hx Blood Transfusions No Anesthesia Review Requested No Fish Hatchery Worker No alcohol intake former Alcohol Intake Frequency Other: Quit age 22 Smoking Status Never smoker Substance Use Type does not use Pain Present Pain Reported Musculoskeletal Symptoms Abnormal Gait,Back Pain, Difficulty Walking,Joint Pain History of Falling (Recent or History of Yes ) Patient is completely paralyzed or No completely immobile Mental Status Oriented to own ability Comment Walking sticks Is patient on oxygen? No Does patient have JARRETT/SOB No Hx Sleep Apnea No Currently Taking a Beta Quentin No Hx Chest Pain No Hx SOB No Hx Syncope or Dizziness No Anti-Coagulant Therapy No Has a University Demonstrator No Cardiac Testing No Hx Pacemaker/ICD No Pacemaker Rep Required? No Cardiac Clearance Received Not Applicable Diet Type At Home Regular Dysphagia No Gastrointestinal Symptoms Reflux Chronic UTI No Bladder Pattern Urgency Urinary Catheter Present No Hx Urinary Self Catheterization No Diabetes No HgbA1C 5.9 Date 12/09/22 Hx Drug Resistant Organism No Presence of External or Internal Medical Yes: Joi knees, right hip, joi Devices eye IOLs Have you had any close contact with No someone diagnosed with COVID-19? Received a COVID vaccine? Yes Received all doses? Yes Marital Status Lives With spouse Current Living Arrangements House Number of Floors (Floors) Two Floors Number of Stairs To Enter/Railing? None Support System Spouse Does the Patient Have Assistance After Yes: Spouse gone during the Surgery day, but can help in mornings/ nights Patient Discharge Plan Description Return Home Comment Pt advised overnight length of stay per surgeon, I need two nights Feels Safe in Current Environment Yes Been Physically Hurt or Threatened By a No Person in Current Environment Do you have thoughts of harming yourself None or others? Are you currently considering suicide? No Do you have a plan to hurt yourself or No Plan others? Do You Have Any Spiritual Beliefs That No May Affect Your HC Choices? Do You Have Any Cultural Practices That No May Affect Your HC Choices? Who Can We Speak to About Patient's Care Family, friends Identifying Code for Release of Patient Declines to issue Information Health Care Proxy/Next of Kin Roxie () Health Care Proxy Emergency Contact Name Roxie () Emergency Contact Advance Directives? No Power of Implementation Architect Yes Power of Implementation Architect Name Roxie () Power of Implementation Architect PAC Instructions Durable medical equipment, Medications to take/avoid, Nasal antibiotic,No ETOH/ petroleum product on skin DOS, NPO,Pre-surgical wash,Sensory aids,Sturdy shoes/comfortable clothes,Do not bring valuables and remove jewelry
--- NOTE | 2023-02-21 10:28 | PT.IIE ---
Current Diagnoses Unilateral primary osteoarthritis, left hip (02/20/23) Presence of unspecified artificial hip joint (02/20/23) Surgery Performed Operation Date: 02/20/23 13:45 Actual Procedures p Total Hip Arthroplasty/Anterior Approach(Left) - Reema Figueroa MD Surgical History (Last Updated 02/12/23 @ 10:05 by Blanca Jones, RN) H/O transurethral resection of prostate History of kidney surgery (2014) History of right hip replacement (2005) Hx of bilateral cataract extraction (2021) Hx of cervical spine surgery Hx of colonoscopy with polypectomy Hx of laminectomy Hx of total knee arthroplasty (~2014) S/P rotator cuff repair Medical History (Last Updated 02/12/23 @ 10:44 by Blanca Jones, RN) Abdominal bloating Acne Anesthesia complication Benign prostatic hyperplasia with lower urinary tract symptoms (06/03/16) BPH (benign prostatic hyperplasia) Cancer of kidney (~2014) Chickenpox Essential hypertension (10/07/17) GERD (gastroesophageal reflux disease) GERD (gastroesophageal reflux disease) Hearing loss Hearing loss History of colonic polyps (06/03/16) History of renal cell cancer (06/03/16) Hypertension Lumbar spinal stenosis Measles Osteoarthritis of knees, bilateral (~2014) Primary osteoarthritis of hip (06/03/16) Right rotator cuff tear Urinary incontinence Physical Therapy Inpatient Evaluation/Re-Eval M1 PT/OT-IP Prior Functional Status Start: 02/21/23 09:32 Freq: NEEDED Status: Active Protocol: Document 02/21/23 10:15 ES (Rec: 02/21/23 10:28 ES [id number]) Medical Review Prior Functional Status Medical History Reviewed Yes Diet/Fluid Consistency Regular Communication Able to make needs known. Mobility and Gait Indep without AD. Activities of Daily Living and IADL's Indep. Social History Household Members spouse Living Arrangements House Number of Floors (Floors) One Floor Number of Stairs To Enter/Railing? 1 small step to enter. Lives on main sap mobility architect (has basement but will not need to use). Home Environment Walk in Shower,Tub/Shower Doors Home Equipment Front Wheel Walker,Shower Seat without Backrest,Junior Network Administrator,Sock Aid,Lift Recliner Employment Status Director Of Business Services Employed Additional Social History Comment Works as a business technology analyst. works away from the home most days during the week but will be home over the weekend and on Friday to assist. M2 PT-IP Current Condition Start: 02/21/23 09:32 Freq: NEEDED Status: Active Protocol: Document 02/21/23 10:15 ES (Rec: 02/21/23 10:28 ES [id number]) Physical Therapy Current Condition Current Condition Evaluation Date 02/21/23 Treatment Diagnosis s/p L PATRICK anterior Onset Date M3 PT-IP Subjective Start: 02/21/23 09:32 Freq: NEEDED Status: Active Protocol: Document 02/21/23 10:15 ES (Rec: 02/21/23 10:28 ES [id number]) Subjective Physical Therapy Visit Type Type Initial Evaluation Visit Start Time 08:58 Visit Stop Time 09:24 Total Visit Minutes 26 Physical Therapy Visit Comments Patient Comments Patient stated the PA told him he could stay as long as he wanted in the hospital, so he wants to stay overnight tonight. is working from home today. Patient stated he has been monitoring his BP at home. Not having any pain at rest and declined narcotics prior to PT session. Agreeable to work with PT. Therapy Pain Assessment Pain When Pain Assessed At Rest Pain Present Pain Present Denied Pain M4 PT-IP Mobility and Gait Start: 02/21/23 09:32 Freq: NEEDED Status: Active Protocol: Document 02/21/23 10:15 ES (Rec: 02/21/23 10:28 ES [id number]) PT-Bed Mobility Assessment Supine to Sit Supine to Sit Minimal Assistance,Head of Bed Elevated,Bedrails Sit to Supine Sit to Supine Moderate Assistance,Head of Bed Elevated,Bedrails Scooting Scooting to Edge of Bed Standby Assistance Scooting Up and Down in Bed Minimal Assistance PT-Transfer Assessment Comments Mobility Comments Educated patient on anterior hip precautions prior to getting up to EOB. Min A for moving LLE to EOB. BP supine 96/55. BP seated 79/45, symptomatic. BP supine 99/55, asymptomatic. Mod A for lifting BLE's back into bed. Patient left with call light and personal items within reach. RN notified of orthostatic hypotension. Gait Assessment Comments Gait Comments Not appropriate due to low BP. M5 PT-IP Objective Assessments Start: 02/21/23 09:32 Freq: NEEDED Status: Active Protocol: Document 02/21/23 10:15 ES (Rec: 02/21/23 10:28 ES [id number]) Orientation Orientation/Cognition Level of Alertness Alert Orientation Name,Age,Birthday,Month,Date, Year,Day of Week,Place, Situation Language Function Ability No Deficits Noted Safety Awareness Understands Safety Issues Memory Description No Deficits Noted Gross Range of Motion Upper Extremity ROM Assessment Within Functional Limits Lower Extremity ROM Assessment Bilaterally Impaired Impairments LLE limited 2/2 pain, precautions. Strength Upper Extremity Strength Assessment Within Functional Limits Lower Extremity Strength Assessment Left Impaired Hip L hip grossly 2+/5 M6 PT-IP Treatment Start: 02/21/23 09:32 Freq: NEEDED Status: Active Protocol: Document 02/21/23 10:15 ES (Rec: 02/21/23 10:28 ES [id number]) Physical Therapy Treatment Exercises Exercises Ankle Pumps,Gluteal Sets,Quad Sets,Heel Slides Education Education Provided Precautions,Weight Bearing Status,Post-Op Packet,Safety Other Treatments Other Treatment Performed Instructed patient in doing AAROM heel slides with towel/ blanket/sheet around foot for increased ROM, decreased pain. M7 PT-IP Assessment and Plan Start: 02/21/23 09:32 Freq: NEEDED Status: Active Protocol: Document 02/21/23 10:15 ES (Rec: 02/21/23 10:28 ES [id number]) PT Summary Assessment and Plan Potential Rehabilitation Potential Good Status of Condition at Evaluation Unstable Summary Impairments Pain,ROM,Strength,Bed Mobility ,Transfers,Gait,Activity Tolerance Assessment Summary Patient is a 77 year old male POD 1 s/p L anterior PATRICK. He was unable to get out of bed due to symptomatic orthostatic hypotension. He was able to complete ex's with moderate pain during heel slides, improved when performed AAROM. He will benefit from further therapy to progress mobility when BP is more stable. Anticipate he will go home with 's assistance when medically stable and able to complete therapy goals. Goals Bed Mobility Goal Independent Transfer Goal Independent,Front Wheeled Walker Gait Goal Independent,Front Wheel Walker Gait Distance 100 ft Other Goals Patient will be able to ascend /descend 1 step with FWW with SBA. Days to Meet Goals 3 Frequency of Treatment Frequency Of Treatment Twice a Day Treatment Plan Physical Therapy Treatment Plan Bed Mobility Training,Transfer Training,Gait Training, Therapeutic Exercise,Post Op Education,Discharge Planning, Hot or Cold Pack Other Recommendations and Next Treatment Monitor BP. Progress OOB, Focus ambulation, stair training as tolerated. Precautions Anterior Hip Precautions No Hip Extension,No Hip External Rotation Other Precautions Orthostatic hypotension Weight Bearing Status Weight Bearing Status Weight Bear as Tolerated Recommendations To Nursing Amount of Assist Needed 1 Person Assist Discharge Recommendations PT Discharge Recommendations Home with Assistance, Outpatient PT Transportation Needs at Discharge Private Vehicle
--- NOTE | 2023-02-21 11:20 | OT.IP.TRT ---
Current Diagnoses Unilateral primary osteoarthritis, left hip (02/20/23) Presence of unspecified artificial hip joint (02/20/23) Surgery Performed Operation Date: 02/20/23 13:45 Actual Procedures p Total Hip Arthroplasty/Anterior Approach(Left) - Reema Figueroa MD Occupational Therapy Treatment Note M3 OT- IP Subjective and Pain Start: 02/21/23 11:18 Freq: Status: Active Protocol: Document 02/21/23 11:19 CGR (Rec: 02/21/23 11:20 CGR [id number]) OT- Subjective Occupational Therapy Visit Type Type Administrative Note Notes Discussed sx with pt. Pt has had multiple sx in the past including his other hip and 2 knees. Pt states he has all necessary equipment at home. Pt with BPs in the 70s systolic per P.T. this morning . Will hold at this time and continue to follow.
[2023-02-21] MEDS: LACTATED RINGERS 1,000 ML 100 ML IV ×2 (11:24→17:04)
[2023-02-21] MEDS: LACTATED RINGERS 500 ML 1000 ML IV (11:26)
--- NOTE | 2023-02-21 11:46 | PC.NURSE ---
PT worrked with pt this morning at 0900. PT stated that pt was hypotensive (99/45) when sitting at the edge of the bed. PT decided to not get pt up out of bed since significant drop in pressure. Pt notified me, RN. PCT took BP @ 1055, 79/49. Notified me. I double checked BP in both arms, still low in the 70s and 80s. Put pt in Trendelenburg position, BP 94/46 @1105, and turned up the mls/hr to bolus pt with LR already hanging (about 200 mls total left). Asked for help from another RN, Rhonda, he checked on pt and let the weigh and charge worker know while I called January LOVE to inform. New orders for 500 ml LR bolus were put in and started. Pt c/o not feeling comfotable in Trendelenburg position, so sat upright. BP 88/48 at the moment. Will recheck and update PA when bolus is finished. Pt stated he was feeling lightheaded, but no dizziness or sweating occurred.
--- NOTE | 2023-02-21 15:41 | PT-IP ANOTE ---
Attempted to work with patient twice this afternoon. Both times patient's BP was too low to be appropriate to mobilize OOB (91/54, then 83/42). Will attempt again tomorrow.
[2023-02-21] MEDS: MONTELUKAST 10 MG TABLET PO (17:05)
[2023-02-21] MEDS: FAMOTIDINE 20 MG TABLET PO (17:08)
[2023-02-22] MEDS: IBUPROFEN 400 MG TABLET PO ×3 (01:03→09:39)
[2023-02-22] MEDS: ACETAMINOPHEN 325 MG TABLET 650 MG PO ×3 (01:03→12:13)
[2023-02-22 03:13] VITALS: BP 108/67
[2023-02-22 05:40] VITALS: BP 106/64
[2023-02-22 08:00] VITALS: BP 111/60; PULSE 80
--- NOTE | 2023-02-22 08:18 | PC.NURSE ---
Addendum entered by Lefty Krishnamurthy R.N. 02/22/23 15:02: Pt cleared to discharge by PT per MD orders. Pt A&O, follows commands. tolerating getting dressed and into car. Instructions given and understood by Pt and . IV d/c'd per protocol. Pt escorted to car. Original Note: Pt A&O, Offers no overt c/o. Left hip dressing CDI. Pedal pulses intact. Pt set up for B'fast.
--- NOTE | 2023-02-22 08:40 | PM.PNPO.1 ---
Subjective Subjective Date Patient Seen: 02/22/23 Time Patient Seen: 08:40 Interval history: Received multiple calls yesterday re pts low blood pressure, which is a known post-surgical occurrence for him. HR WNL, pt making adequate urine. He did not work w/ PT yesterday d/t loww blood pressure. He says he is feeling much better today and is looking forward to working with PT and going home. Exam Vital Signs (past 8 hours): - 02/22/23 03:13 02/22/23 05:40 Blood Pressure 108/67 106/64 Oxygen Delivery Method Room Air Oxygen Flow Rate 0 Narrative Exam Narrative: 5/5 strength in hip flexors, quadriceps, hamstrings, DF, PF, EHL on left. Sensation to light touch intact throughout LLE. Calf soft, compressible, nontender and without palpable cords or masses. Aquacel dressing CDI. Objective Labs 02/21/23 05:49 PFSH Medical History (Updated 02/22/23 @ 08:42 by January Moore PA-C) Abdominal bloating Acne Anesthesia complication Benign prostatic hyperplasia with lower urinary tract symptoms (06/03/16) BPH (benign prostatic hyperplasia) Cancer of kidney (~2014) Chickenpox Essential hypertension (10/07/17) GERD (gastroesophageal reflux disease) GERD (gastroesophageal reflux disease) Hearing loss Hearing loss History of colonic polyps (06/03/16) History of renal cell cancer (06/03/16) Hypertension Lumbar spinal stenosis Measles Osteoarthritis of knees, bilateral (~2014) Primary osteoarthritis of hip (06/03/16) Right rotator cuff tear Urinary incontinence Surgical History (Updated 02/21/23 @ 07:13 by January Moore PA-C) H/O transurethral resection of prostate History of kidney surgery (2014) History of right hip replacement (2005) Hx of bilateral cataract extraction (2021) Hx of cervical spine surgery Hx of colonoscopy with polypectomy Hx of laminectomy Hx of total knee arthroplasty (~2014) S/P rotator cuff repair Family History Brother Cancer Father Cancer Mother No problems noted. Social History household members: spouse Smoking Status: Never smoker alcohol intake: former Assessment & Plan Post-op Assessment and plan (1) S/P total hip arthroplasty: Assessment and Plan narrative: Discharge home after PT if vital signs remain stable. (2) Orthostatic hypotension: Assessment and Plan narrative: This is a known occurrence after surgery for this patient. No intervention needed at this time. Postoperative Procedures: Procedures Operation Date: 02/20/23 13:45 Actual Procedure Side Surgeon p Total Hip Arthroplasty/Anterior Approach Left Reema Figueroa MD Postoperative day: 2 Quality VTE Deep Vein Thrombosis/Pulmonary Embolism Present on Admission: No
--- NOTE | 2023-02-22 08:45 | PT.IPTN ---
Current Diagnoses Orthostatic hypotension (02/20/23) Unilateral primary osteoarthritis, left hip (02/20/23) Presence of unspecified artificial hip joint (02/20/23) Surgery Performed Operation Date: 02/20/23 13:45 Actual Procedures p Total Hip Arthroplasty/Anterior Approach(Left) - Reema Figueroa MD Physical Therapy Treatment Note M2 PT-IP Current Condition Start: 02/21/23 09:32 Freq: NEEDED Status: Active Protocol: Document 02/21/23 10:15 ES (Rec: 02/21/23 10:28 ES [id number]) Physical Therapy Current Condition Current Condition Evaluation Date 02/21/23 Treatment Diagnosis s/p L PATRICK anterior Onset Date M3 PT-IP Subjective Start: 02/21/23 09:32 Freq: NEEDED Status: Active Protocol: Document 02/22/23 09:28 TS (Rec: 02/22/23 10:14 TS [id number]) Subjective Physical Therapy Visit Type Type Treatment Note Visit Start Time 08:45 Visit Stop Time 09:22 Total Visit Minutes 37 Number of DEPUTY DIRECTOR OF FINANCE Visits 1 Physical Therapy Visit Comments Patient Comments Pt found resting in bed, reports his BP has been higher today, would like to get out of bed, agreeable to PT. M4 PT-IP Mobility and Gait Start: 02/21/23 09:32 Freq: NEEDED Status: Active Protocol: Document 02/22/23 09:28 TS (Rec: 02/22/23 10:14 TS [id number]) PT-Bed Mobility Assessment Supine to Sit Supine to Sit Minimal Assistance,Head of Bed Elevated,Bedrails Scooting Scooting to Edge of Bed Standby Assistance PT-Transfer Assessment Sit to and From Stand Sit to and from Stand Minimal Assistance,Moderate Assistance,1 Person Assistance ,Use of Upper Extremities Equipment Transfer Assistive Device Gait Belt,Front Wheeled Walker Orthotic/Prosthetic Devices or Brace: No Comments Mobility Comments BP taken in supine prior to mobility 103/57. Supine to sit from flat bed Rosey for LLE over to EOB, pt used BUE support to push up into sitting. Sitting EOB BP 106/65 , c/o some dizziness. Sit to stand x1 from elevated bed Rosey with BUE support on FWW, provided cues for feet underneath to push up into standing. BP taken in standing 100/63, no complaints of dizziness. Pt ambulated ~200' CGA, pt with flexed posture with antalgic step to gait, no buckling or LOB. He sat back in chair for rest break, sit to stand x1 ModA, provided cues for pushing from arms of chair and cues for feet underneath. He performed steps x2 on step benito with CGA and LUE counter support. PT was left back in chair with call light nearby and all needs met . Gait Assessment Gait Gait Assistance Required: Contact Guard Assist Distance (Feet) 200 Assistive Devices Assistive Device Gait Belt,Front Wheeled Walker Orthotic/Prosthetic Devices or Brace: No Gait Deviations General Gait Pattern Antalgic,Decreased Stride Length,Decreased Feet Clearance,Flexed Trunk,Step-to Gait Factors Limiting Gait Function Factors Limiting Gait Function Decreased Activity Tolerance, Decreased Strength,Limited Range of Motion,Pain,Poor Balance,Poor Safety Awareness Comments Gait Comments See mobility comments. Stair Climbing Assessment Evaluation Level of Assist On Stairs Contact Guard Assistance Devices Stair Climbing Assistive Devices Left Railing Technique/Endurance Stair Climbing Direction Ascend and Descend Stair Climbing Technique Step to Step Number of Steps Climbed 2 Comments Stair Climbing Comments See mobility comments. PT-Balance Assessment Sitting Balance and Reactions Static Sitting Balance Ability Good Dynamic Sitting Balance Ability Good Standing Balance and Reactions Static Standing Balance Ability Good Dynamic Standing Balance Ability Fair M5 PT-IP Objective Assessments Start: 02/21/23 09:32 Freq: NEEDED Status: Active Protocol: Document 02/21/23 10:15 ES (Rec: 02/21/23 10:28 ES [id number]) Orientation Orientation/Cognition Level of Alertness Alert Orientation Name,Age,Birthday,Month,Date, Year,Day of Week,Place, Situation Language Function Ability No Deficits Noted Safety Awareness Understands Safety Issues Memory Description No Deficits Noted Gross Range of Motion Upper Extremity ROM Assessment Within Functional Limits Lower Extremity ROM Assessment Bilaterally Impaired Impairments LLE limited 2/2 pain, precautions. Strength Upper Extremity Strength Assessment Within Functional Limits Lower Extremity Strength Assessment Left Impaired Hip L hip grossly 2+/5 M6 PT-IP Treatment Start: 02/21/23 09:32 Freq: NEEDED Status: Active Protocol: Document 02/22/23 09:28 TS (Rec: 02/22/23 10:14 TS [id number]) Physical Therapy Treatment Education Education Provided Precautions,Weight Bearing Status,Post-Op Packet,Safety Other Treatments Other Treatment Performed Pt recalled 2/2 hip precautions. M7 PT-IP Assessment and Plan Start: 02/21/23 09:32 Freq: NEEDED Status: Active Protocol: Document 02/22/23 09:28 TS (Rec: 02/22/23 10:14 TS [id number]) PT Summary Assessment and Plan Potential Rehabilitation Potential Good Summary Impairments Pain,ROM,Strength,Bed Mobility ,Transfers,Gait,Activity Tolerance Progress Towards Goals Progressing Toward Goals Assessment Summary Pt is progressing well with his mobility this morning. His vitals have improved and reported some minor dizziness in sitting but improved once on feet, see vitals above. He progressed his sit to stands to x1 Rosey from bed and ModA from chair. He ambulated ~200' CGA, pt slightly unsteady and requires cues for staying close to FWW. He performed stairs x2 CGA, no buckling or LOB. PT is recommending return home with assist from spouse. Caregiver training with spouse at 13:00 this afernoon. Goals Bed Mobility Goal Independent Transfer Goal Independent,Front Wheeled Walker Gait Goal Independent,Front Wheel Walker Gait Distance 100 ft Other Goals Patient will be able to ascend /descend 1 step with FWW with SBA. Days to Meet Goals 3 Frequency of Treatment Frequency Of Treatment Twice a Day Treatment Plan Physical Therapy Treatment Plan Bed Mobility Training,Transfer Training,Gait Training, Therapeutic Exercise,Post Op Education,Discharge Planning, Hot or Cold Pack Other Recommendations and Next Treatment Monitor BP. Progress OOB, Focus ambulation, stair training as tolerated. Precautions Anterior Hip Precautions No Hip Extension,No Hip External Rotation Other Precautions Orthostatic hypotension Weight Bearing Status Weight Bearing Status Weight Bear as Tolerated Recommendations To Nursing Amount of Assist Needed 1 Person Assist Discharge Recommendations PT Discharge Recommendations Home with Assistance, Outpatient PT Transportation Needs at Discharge Private Vehicle
[2023-02-22] MEDS: DOCUSATE 100 MG CAPSULE PO (09:38)
[2023-02-22] MEDS: ASPIRIN EC 81 MG TABLET PO (09:38)
--- NOTE | 2023-02-22 12:19 | CM.DPC ---
DCP Discharge Home Per Ortho PA, pt medically stable to d/c home today after final PT as attempted discharge yesterday but pt having bp issues/orthostatics and discharge was cancelled yesterday 02/21/23. Per OIL BURNER REPAIRER, pt able to participate today without orthostatic issues and plan is CG training with spouse today at 1300 and then recommending home with spouse assist and outpt PT. Per RN, no concerns at this time and will review discharge instructions after CG training. Plan: Patient to discharge home via spouse POV after 1300 CG training and outpt PT and f/u and no further SW needs at this time. KONRAD Salvador
--- NOTE | 2023-02-22 13:05 | PT.IPTN ---
Current Diagnoses Orthostatic hypotension (02/20/23) Unilateral primary osteoarthritis, left hip (02/20/23) Presence of unspecified artificial hip joint (02/20/23) Surgery Performed Operation Date: 02/20/23 13:45 Actual Procedures p Total Hip Arthroplasty/Anterior Approach(Left) - Reema Figueroa MD Physical Therapy Treatment Note M2 PT-IP Current Condition Start: 02/21/23 09:32 Freq: NEEDED Status: Active Protocol: Document 02/21/23 10:15 ES (Rec: 02/21/23 10:28 ES [id number]) Physical Therapy Current Condition Current Condition Evaluation Date 02/21/23 Treatment Diagnosis s/p L PATRICK anterior Onset Date M3 PT-IP Subjective Start: 02/21/23 09:32 Freq: NEEDED Status: Active Protocol: Document 02/22/23 13:43 TS (Rec: 02/22/23 14:03 TS [id number]) Subjective Physical Therapy Visit Type Type Treatment Note Visit Start Time 13:05 Visit Stop Time 13:40 Total Visit Minutes 35 Notes Spouse present for caregiver training. Number of SUSTAINABILITY OFFICER Visits 2 Physical Therapy Visit Comments Patient Comments Pt found resting in bed, agreeable to PT. Therapy Pain Assessment Pain When Pain Assessed During Mobility Pain Present Pain Present Pain Reported M4 PT-IP Mobility and Gait Start: 02/21/23 09:32 Freq: NEEDED Status: Active Protocol: Document 02/22/23 13:43 TS (Rec: 02/22/23 14:03 TS [id number]) PT-Bed Mobility Assessment Supine to Sit Supine to Sit Minimal Assistance,Head of Bed Elevated,Bedrails Sit to Supine Sit to Supine Minimal Assistance,Head of Bed Elevated,Bedrails Scooting Scooting to Edge of Bed Standby Assistance Scooting Up and Down in Bed Standby Assistance PT-Transfer Assessment Sit to and From Stand Sit to and from Stand Standby Assistance,Contact Guard Assistance Equipment Transfer Assistive Device Gait Belt,Front Wheeled Walker Orthotic/Prosthetic Devices or Brace: No Comments Mobility Comments BP taken in supine 104/55. Supine to sit HOB elevated Rosey for LLE to EOB, pt used BUE support to upright trunk. Sit to stand from CGA with FWW , pt requires cues for upright posture and uses back of LEs against bed to come into standing. Pt ambulated ~ 200' CGA, pt flexes and extends arms out keeping FWW away from him. HE required cues for keeping FWW close and heel to toe contact on LLE, pt tends to shuffle feet. He ambulated back to room for use of toilet. Sit to stand from toilet SBA with use of grab bars and FWW. Sit to supine into bed Rosey for LLE assistance. Pt was left in bed with call light nearby, spouse in room, Rn notified. Gait Assessment Gait Gait Assistance Required: Contact Guard Assist Distance (Feet) 200 Assistive Devices Assistive Device Gait Belt,Front Wheeled Walker Orthotic/Prosthetic Devices or Brace: No Gait Deviations General Gait Pattern Antalgic,Decreased Stride Length,Decreased Feet Clearance,Flexed Trunk,Step-to Gait Factors Limiting Gait Function Factors Limiting Gait Function Decreased Activity Tolerance, Decreased Strength,Limited Range of Motion,Pain,Poor Balance,Poor Safety Awareness Comments Gait Comments See mobility comments. PT-Balance Assessment Sitting Balance and Reactions Static Sitting Balance Ability Good Dynamic Sitting Balance Ability Good Standing Balance and Reactions Static Standing Balance Ability Good Dynamic Standing Balance Ability Fair M5 PT-IP Objective Assessments Start: 02/21/23 09:32 Freq: NEEDED Status: Active Protocol: Document 02/21/23 10:15 ES (Rec: 02/21/23 10:28 ES [id number]) Orientation Orientation/Cognition Level of Alertness Alert Orientation Name,Age,Birthday,Month,Date, Year,Day of Week,Place, Situation Language Function Ability No Deficits Noted Safety Awareness Understands Safety Issues Memory Description No Deficits Noted Gross Range of Motion Upper Extremity ROM Assessment Within Functional Limits Lower Extremity ROM Assessment Bilaterally Impaired Impairments LLE limited 2/2 pain, precautions. Strength Upper Extremity Strength Assessment Within Functional Limits Lower Extremity Strength Assessment Left Impaired Hip L hip grossly 2+/5 M6 PT-IP Treatment Start: 02/21/23 09:32 Freq: NEEDED Status: Active Protocol: Document 02/22/23 13:43 TS (Rec: 02/22/23 14:03 TS [id number]) Physical Therapy Treatment Education Education Provided Precautions,Weight Bearing Status,Post-Op Packet,Safety M7 PT-IP Assessment and Plan Start: 02/21/23 09:32 Freq: NEEDED Status: Active Protocol: Document 02/22/23 13:43 TS (Rec: 02/22/23 14:03 TS [id number]) PT Summary Assessment and Plan Potential Rehabilitation Potential Good Summary Impairments Pain,ROM,Strength,Bed Mobility ,Transfers,Gait,Activity Tolerance Progress Towards Goals Progressing Toward Goals Assessment Summary Spouse was present for caregiver training this afternoon. Educated caregiver and pt on proper use of gait belt for sit to stands and during gait. Provided caregiver education on LLE assistance for transitioning in/out of bed. Pt continues to require Rosey for bed mobility for LLE assistance. He progressed his sit to stands to CGA from bed and SBA from toilet with use of grab bars. He continues to ambulate 200' CGA, requires cues to stay in FWW and to keep it close. PT is recommending return home with assist from his very supportive spouse. Goals Bed Mobility Goal Independent Transfer Goal Independent,Front Wheeled Walker Gait Goal Independent,Front Wheel Walker Gait Distance 100 ft Other Goals Continue to progress gait, 1 step with SBA. Days to Meet Goals 3 Frequency of Treatment Frequency Of Treatment Twice a Day Treatment Plan Physical Therapy Treatment Plan Bed Mobility Training,Transfer Training,Gait Training, Therapeutic Exercise,Post Op Education,Discharge Planning, Hot or Cold Pack Other Recommendations and Next Treatment Monitor BP. Progress OOB, Focus ambulation, stair training as tolerated. Precautions Anterior Hip Precautions No Hip Extension,No Hip External Rotation Other Precautions Orthostatic hypotension Weight Bearing Status Weight Bearing Status Weight Bear as Tolerated Recommendations To Nursing Amount of Assist Needed 1 Person Assist Discharge Recommendations PT Discharge Recommendations Home with Assistance, Outpatient PT Transportation Needs at Discharge Private Vehicle
== END 2023-02-22 14:45 | disposition home or self-care (01) ==
LOC: OR 02-24 07:28
PROVIDERS: Admitting Provider Orthopaedic Surgery; PCP Student in an Organized Health Care Education/Training Program; Referring Provider Orthopaedic Surgery; Visit Provider Orthopaedic Surgery
PROC: (CPT 27130; principal; 2023-02-20 13:45)
DX: M16.12 Unilateral primary osteoarthritis, left hip (principal)
CPT/HCPCS: 27130; 36415; 73502; 76000; 85014; 85018; 97116; 97162; 97530; C1776; G0378; A9270; C9290; J0690; J2250; J2405; J2704; J3010

== ENCOUNTER → 2023-07-07 12:50 | Outpatient (CLI) | payer MEDICARE, OTHER, SELFPAY ==
[2023-02-20 17:49] VITALS: BMI 24.3
[2023-07-07 13:15] LABS: Add Manual Diff / Slide Review NO; Basophils Absolute Auto 100 /uL (0-100); Basophils Percent Auto 1.1 % (0-2); Eosinophils Absolute Auto 400 /uL (0-450); Eosinophils Percent Auto 5.8 % (2-4); Hematocrit 38.9 % (41-53); Hemoglobin 12.9 g/dL (13.5-17.5); Lymphocytes Absolute Auto 1800 /uL (1100-4500); Lymphocytes Percent Auto 29.3 % (25-40); Mean Corpuscular Hemoglobin 25.8 PG (26-34); Mean Corpuscular Volume 78.2 fL (80-100); Monocytes Absolute Auto 600 /uL (0-900); Monocytes Percent Auto 9.6 % (3-14); Neutrophils Absolute Auto 3400 /uL (1500-7000); Neutrophils Percent Auto 54.2 % (50-75); Platelet Count 214 X10^3/uL (150-400); Red Blood Cell Count 4.98 X10^6/uL (4.5-5.9); Red Cell Distribution Width 17.5 % (11.6-14.8); White Blood Cell Count 6.2 X10^3/uL (4.5-11.0)
[2023-07-07 13:35] LABS: C-Reactive Protein Quant < 0.5 mg/dL (<1.0)
[2023-07-07 14:01] LABS: Erythrocyte Sedimentation Rate 3 MM/HR (0-15)
[2023-07-14 15:38] LABS: HLA B27 Negative (.)
== END ==
PROVIDERS: Referring Provider Orthopaedic Surgery; Visit Provider Orthopaedic Surgery
DX: M45.4 Ankylosing spondylitis of thoracic region (principal); M25.80 Other specified joint disorders, unspecified joint; Z96.642 Presence of left artificial hip joint; M45.0 Ankylosing spondylitis of multiple sites in spine; M40.14 Other secondary kyphosis, thoracic region
CPT/HCPCS: 36415; 81374; 85025; 85651; 86140

== ENCOUNTER → 2023-08-21 11:38 | Outpatient (CLI) | payer MEDICARE, OTHER, SELFPAY ==
[2023-02-20 17:49] VITALS: BMI 24.3
--- NOTE | 2023-08-21 11:39 | DI.MRI.S_ITS ---
PROCEDURE: MR HIP LT WO CON INDICATIONS: left hip pain TECHNIQUE: Noncontrast coronal T1 spin echo and STIR through the bony pelvis. Coronal and axial STIR, sagittal T1 spin echo, and oblique axial STIR through the hip. COMPARISON: [facility] [place], CR, XR PELVIS WITH LATERAL HIP LEFT, 07/03/2023, 16:56. [facility], MR, MR HIP LT WO CON, 11/13/2022, 17:15. FINDINGS: Image quality: Images are mildly degraded by expected metallic artifact related to the hip prostheses despite utilization of metal artifact reduction sequences. Diagnostic information is obtained. Bones and joints: Metal artifact is seen related to the bilateral hip arthroplasties, which obscures adjacent structures. 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 No significant joint effusion is seen. A small amount of fluid is seen adjacent to the right hip arthroplasty on large [id number] coronal images. [id number] degenerative changes at the pubic symphysis and sacroiliac joints. Degenerative disc disease and facet hypertrophy are seen in the included lumbar spine. No intraosseous lesions or fractures. Tendons and ligaments: The gluteus medius and minimus tendons demonstrate mild tendinosis. The proximal iliotibial band appears intact. The iliopsoas tendon appears intact, without adjacent bursal fluid collections. The origin of the hamstring tendon demonstrates mild tendinosis. The direct and indirect heads of the rectus femoris muscle origin appear intact. Soft tissues: Visualized muscles demonstrate normal bulk and internal signal. Quadratus femoris muscle demonstrates no internal edema to suggest ischiofemoral impingement. The proximal sciatic neurovascular bundle appears intact. The included portions of the pelvis demonstrate no acute abnormality. Small left hydrocele. Prostate is enlarged. IMPRESSION: 1. Postsurgical changes from bilateral hip arthroplasties with associated metal artifact. 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 2. Mild gluteus medius and minimus tendinosis. Mild proximal hamstring tendinosis. 3. Degenerative changes at the pubic symphysis, sacroiliac joints, and lumbar spine. Approved by: Osorio Knapp M.D. on 08/21/2023 at 20:57
== END ==
PROVIDERS: PCP Student in an Organized Health Care Education/Training Program; Referring Provider Student in an Organized Health Care Education/Training Program; Visit Provider Student in an Organized Health Care Education/Training Program
DX: M47.818 Spondylosis without myelopathy or radiculopathy, sacral and sacrococcygeal region (principal); M47.816 Spondylosis without myelopathy or radiculopathy, lumbar region; M19.90 Unspecified osteoarthritis, unspecified site; Z96.643 Presence of artificial hip joint, bilateral
CPT/HCPCS: 73721

== ENCOUNTER → 2023-12-30 12:19 | Outpatient (CLI) | payer MEDICARE, OTHER, SELFPAY ==
[2023-02-20 17:49] VITALS: BMI 24.3
--- NOTE | 2023-12-30 12:21 | DI.RAD.S_ITS ---
PROCEDURE: XR SHOULDER RT MIN 2V INDICATIONS: Right shoulder pain TECHNIQUE: 3 views of the shoulder were acquired. COMPARISON: [facility], , XR SHOULDER RT MIN 2V, 04/24/2018, 8:08. FINDINGS: Bones: No fractures or dislocations. No suspicious bony lesions. Visualized ribs appear intact. Surgical anchors within the humeral head. Narrowing of the subacromial space. Glenohumeral and acromioclavicular joint space narrowing with associated osteophytosis. Soft tissues: No suspicious soft tissue calcifications. IMPRESSION: Moderate shoulder osteoarthritis. Narrowing of the subacromial space, new from prior and indicating chronic rotator cuff injury. Dictated by: Angelo Canchola M.D. on 12/30/2023 at 14:01 Approved by: Angelo Canchola M.D. on 12/30/2023 at 14:02
--- NOTE | 2023-12-30 12:21 | DI.RAD.S_ITS ---
PROCEDURE: XR SHOULDER LT MIN 2V INDICATIONS: Left shoulder pain TECHNIQUE: 3 views of the shoulder were acquired. COMPARISON: [facility], CR, XR SHOULDER RT MIN 2V, 04/24/2018, 8:08. FINDINGS: Bones: Glenohumeral and acromioclavicular joint space narrowing with associated osteophytosis. No displaced fracture. Soft tissues: No suspicious soft tissue calcifications. IMPRESSION: Moderate shoulder osteoarthritis. Dictated by: Angelo Canchola M.D. on 12/30/2023 at 14:01 Approved by: Angelo Canchola M.D. on 12/30/2023 at 14:01
== END ==
PROVIDERS: PCP Student in an Organized Health Care Education/Training Program; Referring Provider Student in an Organized Health Care Education/Training Program; Visit Provider Student in an Organized Health Care Education/Training Program
DX: M19.012 Primary osteoarthritis, left shoulder (principal); M19.011 Primary osteoarthritis, right shoulder; M25.512 Pain in left shoulder; M25.511 Pain in right shoulder
CPT/HCPCS: 73030

== ENCOUNTER → 2024-01-05 12:51 | Outpatient (CLI) | payer MEDICARE, OTHER, SELFPAY ==
[2023-02-20 17:49] VITALS: BMI 24.3
--- NOTE | 2024-01-05 12:52 | DI.MRI.S_ITS ---
PROCEDURE: MR SHOULDER LT WO CON INDICATIONS: Left shoulder pain TECHNIQUE: Noncontrast oblique coronal T2 fast spin echo with fat saturation, oblique sagittal T1 spin echo and T2 fast spin echo with fat saturation, axial T1 spin echo and T2 fast spin echo with fat saturation through the shoulder. COMPARISON: [facility], MR, MR SHOULDER RT WO CON, 01/05/2024, 12:57. FINDINGS: Image quality: Excellent. Rotator cuff: Low to moderate grade articular surface partial-thickness tear involving distal supraspinatus and infraspinatus at their insertions on the humeral head is seen extending to musculotendinous junction. Focal full-thickness rupture involving posterior fibers of distal supraspinatus approximately 1.9 cm from its insertion on humeral head with up to 4 millimeter medial retraction of torn tendon fibers and a fluid-filled gap measures 7 millimeter in AP dimension. Distal subscapularis tendinosis is seen. Sagittal images demonstrate very mild supraspinatus muscle atrophy. Bones and bursae: There is no marrow edema. No acute fracture or dislocation. Moderate acromioclavicular joint osteoarthritic changes are seen with joint space narrowing and downward osteophyte formation depressing on musculotendinous junction of supraspinatus. Moderate amount of joint fluid and subacromial subdeltoid bursal fluid is seen. No loose bodies. Capsule and soft tissues: Fraying of superior anterior labrum with T2 hyperintense signal concerning for superior anterior labral tear. The long head of the biceps tendon demonstrates normal location and morphology. The rotator interval appears normal, without fibrosis. The coracohumeral ligament is normal in thickness. IMPRESSION: 1. Low to moderate grade articular surface partial-thickness tear involving distal supraspinatus and infraspinatus extending to musculotendinous junction. Focal full-thickness perforation involving posterior fibers of distal supraspinatus approximately 1.9 cm from its insertion on the humeral head with up to 4 mm medial retraction of torn tendon fibers and fluid-filled gap measures 7 mm in AP dimension. Distal subscapularis tendinosis. Rula mild supraspinatus muscle atrophy. 2. No acute fracture or dislocation. Moderate acromioclavicular joint osteoarthritis. Moderate joint effusion and subacromial subdeltoid bursal fluid, cannot rule out bursitis. No loose bodies. 3. Suggestion of subtle superior anterior labral tear. Dictated by: Crescencio Freitas M.D. on 01/05/2024 at 14:44 Approved by: Crescencio Freitas M.D. on 01/05/2024 at 14:49
--- NOTE | 2024-01-05 12:52 | DI.MRI.S_ITS ---
PROCEDURE: MR SHOULDER RT WO CON INDICATIONS: Right shoulder pain TECHNIQUE: Noncontrast oblique coronal T2 fast spin echo with fat saturation, oblique sagittal T1 spin echo and T2 fast spin echo with fat saturation, axial T1 spin echo and T2 fast spin echo with fat saturation through the shoulder. COMPARISON: [facility], MR, MR SHOULDER RT WO CON, 02/05/2022, 17:26. FINDINGS: Image quality: Excellent. Rotator cuff: Susceptibility artifact about the anterior humeral head, limiting evaluation. Within this limitation, there is full-thickness tear of the posterior aspect of the supraspinatus, with tendon retraction to the level of the humeral head, unchanged from prior exam. The paraspinous tendon is intact. The teres minor is unremarkable. Nondiagnostic evaluation of the subscapularis. No retracted tear of the subscapularis. Severe fatty atrophy of the supraspinatus, unchanged from prior exam. No muscle edema. Mild fatty infiltration of the infraspinatus, grossly unchanged. Bones and bursae: Severe degenerate change of the acromioclavicular joint with large inferior projecting osteophyte, resulting in mild mass effect on the myotendinous junction of the supraspinatus. Type 1 acromion. No os acromial. Large subacromial/subdeltoid bursitis. Susceptibility artifact about the anterior humeral head, limiting evaluation. Within this limitation, no acute fracture. No definitive focal chondral defect in the humeral head and the glenoid. Capsule and soft tissues: Limit evaluation a broken metallic artifact. Tear of the anterior labrum. Nondiagnostic evaluation of the extra-articular biceps tendon. The visualized portion of the intra-articular biceps tendon is intact. No significant glenohumeral effusion. IMPRESSION: 1. Susceptibility artifact about the anterior humeral head, limiting evaluation. 2. Severe degenerative change of the acromioclavicular joint. Large subacromial bursitis. 3. Full-thickness tear of the posterior supraspinatus with tendon retraction. Nondiagnostic evaluation of the anterior supraspinatus, which may be torn as well. Severe fatty atrophy of the supraspinatus. 4. Overall, appearance is grossly unchanged from prior exam. Dictated by: Nikole Rutledge M.D. on 01/05/2024 at 14:06 Approved by: Nikole Rutledge M.D. on 01/05/2024 at 14:18
== END ==
PROVIDERS: PCP Student in an Organized Health Care Education/Training Program; Referring Provider Student in an Organized Health Care Education/Training Program; Visit Provider Student in an Organized Health Care Education/Training Program
DX: M75.121 Complete rotator cuff tear or rupture of right shoulder, not specified as traumatic (principal); M75.51 Bursitis of right shoulder; M75.112 Incomplete rotator cuff tear or rupture of left shoulder, not specified as traumatic; M19.012 Primary osteoarthritis, left shoulder; M25.511 Pain in right shoulder; M25.512 Pain in left shoulder; M25.412 Effusion, left shoulder
CPT/HCPCS: 73221

== ENCOUNTER → 2024-02-16 10:54 | Outpatient (CLI) | payer MEDICARE, OTHER, SELFPAY ==
[2023-02-20 17:49] VITALS: BMI 24.3
--- NOTE | 2024-02-16 10:55 | DI.CT.S_ITS ---
PROCEDURE: CT HIP LEFT WITHOUT CON INDICATIONS: PAIN IN LEFT HIP TECHNIQUE: Noncontrast 3 mm axial sections acquired through the bony pelvis. Additional 3 mm axial sections acquired through the symptomatic hip joint, with coronal and sagittal reformats. For radiation dose reduction, the following was used: automated exposure control, adjustment of mA and/or kV according to patient size. COMPARISON: [facility], MR, MR HIP LT WO CON, 08/21/2023, 12:04. [facility], CR, XR PELVIS WITH LATERAL HIP LEFT, 07/03/2023, 16:56. FINDINGS: Image quality: Excellent. 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 There is chronic fragmentation of the lesser trochanter likely related to remote prior trauma. Heterotopic calcifications are seen adjacent to the left hip. Degenerative changes are seen in the sacroiliac joints and lumbar spine as well as the pubic symphysis. Soft tissues: Soft tissue density material is seen adjacent to the left hip, which is obscured by streak artifact. The musculature surrounding the hips is normal in bulk. There is fatty infiltration of a portion of the left adductor evaristo muscle. Included pelvic soft tissues demonstrate no acute abnormality. Mild colonic diverticulosis. Prostate is markedly enlarged. IMPRESSION: 1. 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 Heterotopic calcifications are seen surrounding the left hip. 2. Soft tissue attenuation material adjacent to the left hip corresponds to prior MR findings and could indicate particle disease. 3. Degenerative changes in the pubic symphysis, sacroiliac joints, and spine. Approved by: Osorio Knapp M.D. on 02/16/2024 at 16:46
== END ==
PROVIDERS: PCP Student in an Organized Health Care Education/Training Program; Referring Provider Orthopaedic Surgery; Visit Provider Orthopaedic Surgery
DX: M47.816 Spondylosis without myelopathy or radiculopathy, lumbar region (principal); M25.552 Pain in left hip; Z96.643 Presence of artificial hip joint, bilateral
CPT/HCPCS: 73700

== ENCOUNTER → 2024-04-05 09:17 | Outpatient (CLI) | payer MEDICARE, OTHER, SELFPAY ==
[2023-02-20 17:49] VITALS: BMI 24.3
--- NOTE | 2024-04-05 09:18 | DI.CT.S_ITS ---
PROCEDURE: CT LUMBAR SPINE WO CON INDICATIONS: spinal stenosis, back pain, restless legs TECHNIQUE: Noncontrast 3 mm thick sections acquired from the T12 level to the sacrum. Sagittal and coronal reformats were constructed. For radiation dose reduction, the following was used: automated exposure control. COMPARISON: None. FINDINGS: Image quality: Excellent. Bones: Mild lumbar spine scoliosis. There is straightening of lumbar lordosis. Minimal retrolisthesis of L1 on L2. Grade 1 anterolisthesis of L2 on L3. No acute vertebral body compression fractures. No suspicious lytic or blastic bony lesions. No pars defects. Endplate sclerosis at L4-L5. Multilevel disc height loss, worst at L4-L5. T12-L1: Dorsal disc bulge mildly effaces the ventral spinal canal. No significant foraminal stenosis. Bilateral facet arthropathy. L1-L2: Dorsal disc bulge mildly effaces the ventral spinal canal. Mild narrowing of the right foramen. Moderate stenosis of the left foramen. There is bilateral facet arthropathy. L2-L3: No significant spinal canal stenosis. No significant foraminal stenosis. There is bilateral facet arthropathy. L3-L4: Dorsal disc osteophyte complex mildly narrows the spinal canal. Mild narrowing of the left foramen. The right foramen is patent. Bilateral facet arthropathy. L4-L5: Dorsal disc osteophyte complex results in mild narrowing of the spinal canal. Moderate bilateral foraminal stenosis. There is bilateral facet arthropathy. L5-S1: No spinal canal stenosis or foraminal stenosis. Bilateral facet arthropathy. Soft tissues: No retroperitoneal masses or hematomas. Visualized aorta is normal in caliber. Small amount of of calcified arthrosclerotic plaques within the abdominal aorta. There is a 1.6 cm hemorrhagic cyst within the right kidney. IMPRESSION: 1. No acute fracture or subluxation. 2. Mild lumbar spine scoliosis. Minimal retrolisthesis of L1 on L2. Grade 1 anterolisthesis of L2 on L3. 3. There is moderate bilateral foraminal stenosis at L4-L5. 4. There is straightening of lumbar lordosis. This finding can be seen in patients with muscle spasms. Dictated by: Natanael Nina M.D. on 04/05/2024 at 13:14 Approved by: Natanael Nina M.D. on 04/05/2024 at 13:47
--- NOTE | 2024-04-05 09:18 | DI.CT.S_ITS ---
PROCEDURE: CT CERVICAL SPINE WO CON INDICATIONS: spinal stenosis, back pain, restless legs TECHNIQUE: Noncontrast 3 mm thick sections acquired from the skull base to the T4 level. Sagittal and coronal reformats were then constructed. For radiation dose reduction, the following was used: automated exposure control, adjustment of mA and/or kV according to patient size. COMPARISON: None. FINDINGS: Image quality: Excellent. Bones: No fractures or dislocations. Visualized superior ribs are intact. Alignment: There is straightening of cervical lordosis. Grade 1 retrolisthesis of C5 on C6. Minimal anterolisthesis of C7 on T1. Intervertebral discs: Extensive multilevel disc height loss, worse at C4-C5. Multilevel anterior and posterior disc osteophytes. Soft tissues: Prevertebral soft tissues are normal in thickness. Calcific densities within the soft tissues just posterior to the spinous process from C4 to C6. No paravertebral hematomas. There is scarring at the lung apices. No apical pneumothoraces. Thin calcifications are seen within the posterior longitudinal ligament at the level of C2 that mildly effaces the ventral spinal canal. Individual levels: Difficult to accurately assess due to poor alignment of the axial images to the sagittal images. C2-C3: The spinal canal is obscured by streak artifact. Moderate to severe left foraminal stenosis. Mild narrowing of the right foramen. Bilateral facet arthropathy and uncovertebral joint arthropathy. C3-C4: Dorsal disc osteophyte complex mildly narrows the spinal canal. Moderate right foraminal stenosis. Mild narrowing of the left foramen. Bilateral facet arthropathy and uncovertebral joint arthropathy. C4-C5: Dorsal disc osteophyte complex results in mild to moderate stenosis of the spinal canal. Bilateral moderate foraminal stenosis. Bilateral facet arthropathy and uncovertebral joint arthropathy. C5-C6: No spinal canal stenosis. Moderate bilateral foraminal stenosis. Bilateral facet arthropathy and uncovertebral joint arthropathy. C6-C7: Dorsal disc osteophyte complex mildly narrows the spinal canal. No significant foraminal stenosis. There is bilateral facet arthropathy and uncovertebral joint arthropathy. C7-T1: No spinal canal stenosis or foraminal stenosis. Bilateral facet arthropathy and uncovertebral joint arthropathy. IMPRESSION: 1. No acute fracture or subluxation. 2. Grade 1 retrolisthesis of C5 on C6 and minimal anterolisthesis of C7 on T1. 3. Extensive multilevel disc height loss, worse at C4-C5. 4. It is difficult to accurately assess for spinal canal stenosis or foraminal stenosis due to poor alignment of the axial images to the sagittal images. Consider an MRI of the cervical spine if there is concern for spinal canal stenosis or foraminal stenosis. 5. There is straightening of cervical lordosis. This finding can be seen in patients with muscle spasms. Dictated by: Natanael Nina M.D. on 04/05/2024 at 12:43 Approved by: Natanael Nina M.D. on 04/05/2024 at 13:13
--- NOTE | 2024-04-05 09:18 | DI.CT.S_ITS ---
PROCEDURE: CT THORACIC SPINE WO CON INDICATIONS: spinal stenosis, back pain, restless legs TECHNIQUE: Noncontrast 3 mm thick sections acquired through the region of interest in the thoracic spine. Sagittal and coronal reformats were then constructed. For radiation dose reduction, the following was used: automated exposure control. COMPARISON: None. FINDINGS: Image quality: Excellent. Bones: There is normal overall bony alignment. No acute vertebral body compression fractures. No suspicious sclerotic or lytic bony lesions. Central spinal canal is of normal overall caliber. Multilevel bridging anterior osteophytes extending from the midthoracic spine to the lower thoracic spine. Soft tissues: No paravertebral masses or hematomas. Atelectasis within the posterior portions of the lungs. Small hiatal hernia. Colonic diverticulosis. 1.6 cm hemorrhagic cyst within the right kidney. There is a 1.0 cm partially calcified hypodense focus within the left kidney. Small amount of arthrosclerotic plaques within the abdominal aorta. Thick coronary artery calcifications. IMPRESSION: 1. No acute fracture or subluxation. 2. No significant spinal canal stenosis. 3. Thick coronary artery calcifications. 4. There are multiple bridging anterior osteophytes within the midthoracic spine to the lower thoracic spine. These are typically seen in patients with diffuse idiopathic skeletal hyperostosis. Dictated by: Natanael Nina M.D. on 04/05/2024 at 13:48 Approved by: Natanael Nina M.D. on 04/05/2024 at 14:08
== END ==
LOC: CT 09:18
PROVIDERS: PCP Student in an Organized Health Care Education/Training Program; Referring Provider Student in an Organized Health Care Education/Training Program; Visit Provider Student in an Organized Health Care Education/Training Program
DX: M47.812 Spondylosis without myelopathy or radiculopathy, cervical region (principal); M43.12 Spondylolisthesis, cervical region; M48.061 Spinal stenosis, lumbar region without neurogenic claudication; M48.02 Spinal stenosis, cervical region; M47.816 Spondylosis without myelopathy or radiculopathy, lumbar region; M47.817 Spondylosis without myelopathy or radiculopathy, lumbosacral region; M43.16 Spondylolisthesis, lumbar region; M41.9 Scoliosis, unspecified; M25.511 Pain in right shoulder; M25.512 Pain in left shoulder; M25.852 Other specified joint disorders, left hip; M16.12 Unilateral primary osteoarthritis, left hip; M24.552 Contracture, left hip; R20.2 Paresthesia of skin; I25.10 Atherosclerotic heart disease of native coronary artery without angina pectoris; Z96.643 Presence of artificial hip joint, bilateral
CPT/HCPCS: 72125; 72128; 72131

== ENCOUNTER → 2024-05-08 09:14 | Outpatient (CLI) | payer MEDICARE, OTHER, SELFPAY ==
[2023-02-20 17:49] VITALS: BMI 24.3
--- NOTE | 2024-05-08 09:17 | DI.MRI.S_ITS ---
PROCEDURE: MR CERVICAL SPINE WO CON INDICATIONS: cervical stenosis seen on CT scan TECHNIQUE: Noncontrast sagittal T1 spin echo and T2 fast spin echo, sagittal STIR, foraminal oblique sagittal T2 fast spin echo, and axial gradient echo or T2 fast spin echo through the cervical spine. COMPARISON: [facility], CT, CT CERVICAL SPINE WO CON, 04/05/2024, 9:26. [facility], MR, MR CERVICAL SPINE WO CON, 02/02/2019, 10:11. FINDINGS: Straightening of the cervical spine. Mild anterolisthesis of C4 on C5. Mild retrolisthesis of C5 on C6. Mild anterolisthesis of C7 on T1. Partial osseous fusion of C3-4 and C4-5 vertebral body. Vertebral body height of the cervical spine is well maintained. No suspicious marrow replacing lesion. Multilevel degenerative disc disease of the cervical spine. Multilevel posterior disc osteophyte complex. Core signal: Unremarkable. Right neural foraminal stenosis: Mild at C2-3, moderate at C3-4, severe at C4-5, C5-6, and C6-7. Left neural foraminal stenosis: Moderate at C2-3, mild at C3-4, severe at C5-6, C6-7. Axial images: C2-3: Posterior disc osteophyte complex. Moderate bilateral facet arthropathy. Mild central canal stenosis. C3-4: Posterior disc osteophyte complex. Moderate right, mild left facet arthropathy. Mild central canal stenosis. C4-5: Posterior disc osteophyte complex. Moderate bilateral facet arthropathy. Mild central canal stenosis. C5-6: Posterior disc osteophyte complex. Moderate bilateral facet arthropathy. Mild central canal stenosis. C6-7: Posterior disc osteophyte complex. Moderate bilateral facet arthropathy. Mild central canal stenosis. C7-T1: Severe bilateral facet arthropathy. No central canal stenosis. Other soft tissue findings: None. IMPRESSION: 1. Multilevel degenerative changes of the cervical spine, with bilateral severe neural from stenosis as described above. 2. Multilevel mild central canal stenosis of the cervical spine. Previously seen severe central canal stenosis C2-3 has improved. Dictated by: Nikole Rutledge M.D. on 05/10/2024 at 10:19 Approved by: Nikole Rutledge M.D. on 05/10/2024 at 10:30
== END ==
LOC: MRI 09:15
PROVIDERS: PCP Student in an Organized Health Care Education/Training Program; Referring Provider Student in an Organized Health Care Education/Training Program; Visit Provider Student in an Organized Health Care Education/Training Program
DX: M48.02 Spinal stenosis, cervical region (principal); M47.812 Spondylosis without myelopathy or radiculopathy, cervical region
CPT/HCPCS: 72141

== ENCOUNTER → 2024-05-22 08:48 | Outpatient (CLI) | payer MEDICARE, OTHER, SELFPAY ==
[2023-02-20 17:49] VITALS: BMI 24.3
[2024-05-22 10:05] LABS: Hemoglobin A1C% w Est Avg Glu 5.7 % (4.0-6.0)
[2024-05-22 10:14] LABS: Alanine Aminotransferase 31 IU/L (<50); Albumin 3.8 g/dL (3.5-5.0); Albumin Globulin Ratio 1.6 (1.0-2.8); Alkaline Phosphatase 54 U/L (38-126); Aspartate Aminotransferase 28 IU/L (17-59); BUN Creatinine Ratio 26.5 (6-22); Bilirubin Total 0.5 mg/dL (0.2-1.3); Blood Urea Nitrogen 22 mg/dL (9-20); Calcium 9.5 mg/dL (8.4-10.2); Carbon Dioxide 26 mmol/L (22-32); Chloride 105 mmol/L (98-107); Cholesterol 153 mg/dL (140-199); Estimated Glomerular Filt Rate > 60 mL/min (>60); Globulin 2.4 g/dL (1.7-4.1); Glucose 107 mg/dL (80-110); HDL Cholesterol 48 mg/dL (40-60); HEMOLYSIS < 15 (0-50); LDL Cholesterol Calculated 97 mg/dL (<100); Potassium 4.7 mmol/L (3.4-5.1); Sodium 136 mmol/L (137-145); Total Protein 6.2 g/dL (6.3-8.2); Triglycerides 40 mg/dL (35-150)
== END ==
PROVIDERS: PCP Student in an Organized Health Care Education/Training Program; Referring Provider Student in an Organized Health Care Education/Training Program; Visit Provider Student in an Organized Health Care Education/Training Program
DX: I25.10 Atherosclerotic heart disease of native coronary artery without angina pectoris (principal); Z13.6 Encounter for screening for cardiovascular disorders; Z68.25 Body mass index [BMI] 25.0-25.9, adult; E66.3 Overweight
CPT/HCPCS: 36415; 80053; 80061; 83036

== ENCOUNTER → 2025-03-23 08:44 | Outpatient (CLI) | payer MEDICARE, OTHER, SELFPAY ==
[2023-02-20 17:49] VITALS: BMI 24.3
[2025-03-23 08:58] LABS: Add Manual Diff / Slide Review NO; Hematocrit 46.7 % (41-53); Hemoglobin 16.0 g/dL (13.5-17.5); Lymphocytes Absolute Auto 1300 /uL (1100-4500); Mean Corpuscular HGB Conc 34.4 % (30-36); Mean Corpuscular Hemoglobin 30.9 PG (26-34); Mean Corpuscular Volume 90.0 fL (80-100); Platelet Count 171 X10^3/uL (150-400)
[2025-03-23 09:25] LABS: Alanine Aminotransferase 38 IU/L (<50); Albumin 4.1 g/dL (3.5-5.0); Albumin Globulin Ratio 1.8 (1.0-2.8); Alkaline Phosphatase 51 U/L (38-126); Blood Urea Nitrogen 19 mg/dL (9-20); Calcium 9.2 mg/dL (8.4-10.2); Carbon Dioxide 24 mmol/L (22-32); Chloride 108 mmol/L (98-107); Cholesterol 124 mg/dL (140-199); Estimated Glomerular Filt Rate > 60 mL/min (>60); Globulin 2.3 g/dL (1.7-4.1); Glucose 110 mg/dL (70-99); HDL Cholesterol 53 mg/dL (40-60); HEMOLYSIS < 15 (0-50); Potassium 4.4 mmol/L (3.4-5.1); Sodium 138 mmol/L (137-145); Total Protein 6.4 g/dL (6.3-8.2); Triglycerides 48 mg/dL (35-150)
== END ==
PROVIDERS: PCP Student in an Organized Health Care Education/Training Program; Referring Provider Family Medicine; Visit Provider Family Medicine
DX: I10 Essential (primary) hypertension (principal)
CPT/HCPCS: 36415; 80053; 80061; 85025

== ENCOUNTER → 2025-06-19 14:18 | Outpatient (CLI) | payer MEDICARE, OTHER, SELFPAY ==
[2023-02-20 17:49] VITALS: BMI 24.3
--- NOTE | 2025-06-19 14:20 | DI.MRI.S_ITS ---
PROCEDURE: MR LUMBAR SPINE WO CON INDICATIONS: pain TECHNIQUE: Noncontrast sagittal T1 spin echo and T2 fast echo, sagittal STIR, and T2 fast spin echo through the lumbar spine. In cases with scoliosis, additional coronal T2 fast spin echo may be performed. COMPARISON: [facility], MR, MR LUMBAR SPINE WO CON, 01/02/2022, 18:07. FINDINGS: Image quality: Diagnostic Numbering: There are 4 true lumbar type [id number] vertebral bodies. There is transitional lumbosacral anatomy with bilateral sacralization of L5. Please note this differs from the prior lumbar spine MRI numbering, where the previously noted L1 vertebral body is rib-bearing. Post-surgical changes: Changes of L1-2 through L5-S1 posterior spinal decompression with bilateral laminectomies. Alignment and Curvature: Grade 1 retrolisthesis of L1 on L2. Grade 1 anterolisthesis of L2 on L3. Grade 1 retrolisthesis of L4 on L5. Bone Marrow: Marrow is of normal overall signal. No acute vertebral body compression fractures. Sub endplate fatty deposition at L4-5. Spinal Cord: Conus medullaris terminates at the L1 level. Similar appearance of a small nodule anterior to the distal conus medullaris, measuring 5 mm, previously 4 mm, within the margin of error for measurement technique. Paraspinous Soft Tissues: Severe atrophy and fatty infiltration of posterior paraspinal musculature and the posterior right psoas muscle, unchanged. T2 hypointense 2.2 cm lesion in the medial right interpolar kidney (series 6, image 2). T12-L1: No spinal canal stenosis. Mild bilateral neural foraminal stenosis due to facet arthrosis. L1-L2: Posterior decompressed level. No spinal canal stenosis. Progressive right severe lateral recess and moderate left lateral recess stenosis secondary to retrolisthesis disc uncovering and posterior osteophytosis and facet arthrosis. Similar severe bilateral neural foraminal stenosis due to facet arthrosis. L2-L3: Posterior decompressed level. Similar moderate right lateral recess stenosis due to anterolisthesis disc uncovering and facet arthrosis. Similar moderate bilateral neural foraminal stenosis due to subarticular disc uncovering from anterolisthesis and facet arthrosis. L3-L4: Posterior decompressed level. Similar moderate bilateral lateral recess stenosis due to disc height loss, diffusely bulging disc, and facet arthrosis. Similar moderate bilateral neural foraminal stenosis due to facet arthrosis. L4-L5: Posteriorly decompressed level. Similar moderate bilateral lateral recess stenosis due to posteriorly directed osteophytosis and facet arthrosis. Progressive severe bilateral neural foraminal stenosis due to subarticular osteophytosis and facet arthrosis. L5-S1: Congenitally sacralized level. No spinal canal stenosis no lateral recess stenosis. No neural foraminal stenosis. IMPRESSION: 1. 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 Please note this numbering differs from the prior lumbar spine MRI, with the L5 on this exam corresponding to the prior S1 vertebral body level. 2. Changes of L1-2 through L5-S1 posterior spinal decompression. 3. Multilevel lateral recess stenosis is similar to prior exam and reaches severe on the right at L1-2 and moderate bilaterally at L2-3, L3-4, and L4-5. 4. Progressive multilevel neural foraminal stenosis, reaches severe at L1-2 and L4-5. 5. T2 hypointense lesion may represent a a hemorrhagic cyst versus possible solid lesion in the medial interpolar right kidney. Recommend further evaluation with renal ultrasound. Dictated by: Yunior Goodson M.D. on 06/20/2025 at 12:54 Approved by: Yunior Goodson M.D. on 06/20/2025 at 13:07
== END ==
LOC: MRI 14:19
PROVIDERS: PCP Student in an Organized Health Care Education/Training Program; Referring Provider Student in an Organized Health Care Education/Training Program; Visit Provider Physician Assistant Surgical
DX: M48.061 Spinal stenosis, lumbar region without neurogenic claudication (principal); M47.816 Spondylosis without myelopathy or radiculopathy, lumbar region; M43.16 Spondylolisthesis, lumbar region; M43.27 Fusion of spine, lumbosacral region; N28.9 Disorder of kidney and ureter, unspecified
CPT/HCPCS: 72148